=== PATIENT | female | born 1970 | race Caucasian/White ===

== ENCOUNTER → 2017-06-16 12:15 | Outpatient (CLI) | payer OTHER, SELFPAY ==
[2017-06-21 07:26] LABS: HPV Reflexed? NOT INDICATED
== END ==
PROVIDERS: Visit Provider Obstetrics & Gynecology
DX: Z12.4 Encounter for screening for malignant neoplasm of cervix (principal)
CPT/HCPCS: 88175; G0145

== ENCOUNTER → 2017-07-14 12:58 | Outpatient (CLI) | payer OTHER, SELFPAY ==
--- NOTE | 2017-07-14 13:02 | HPBI_ITS ---
MAMMOGRAPHY - BILATERAL SCREENING REASON FOR EXAM: Female, 47 years old. Routine annual screening examination. PERTINENT HISTORY: Non-contributory. TECHNIQUE: Digital bilateral breast steven (3D mammographic acquisition) in the CC and MLO projections. 2-D mediolateral oblique (MLO) and craniocaudad (CC) views of both breasts were obtained. CAD: Full Field Digital Mammography with Computer Added Detection was performed. COMPARISON: Comparison is made with prior study dated January 01, 2016 and September 17, 2014. FINDINGS: Breast Composition: The breasts are heterogeneously dense, which may obscure small masses. There are no dominant masses or suspicious calcifications. No other significant abnormalities are identified. There has been no significant change since the prior study. HPBI/SCREENING MAMM (CAD), BILAT IMPRESSION: Stable bilateral screening mammogram. Yearly follow-up mammogram recommended. (A) ASSESSMENT CATEGORY: BIRADS Category 1: Negative. A letter regarding these results will be sent to the patient by the facility within 30 days. Approximately 10% of breast cancers are not detected by mammography. A normal mammogram should not delay biopsy of a clinically suspicious abnormality. [id number] Electronically Signed: Sekou Webb MD at 15:25 EST Tel [phone], Service support ,
== END ==
LOC: BI 13:00
PROVIDERS: Family Provider Family Medicine; PCP Family Medicine; Visit Provider Obstetrics & Gynecology
DX: Z12.31 Encounter for screening mammogram for malignant neoplasm of breast (principal)
CPT/HCPCS: 77063; 77067

== ENCOUNTER → 2018-09-21 | Outpatient (CLI) | payer OTHER, SELFPAY ==
--- NOTE | 2018-09-20 16:46 | BI_ITS ---
MAMMOGRAPHY - BILATERAL SCREENING REASON FOR EXAM: Female, 48 years old. Routine annual screening examination. PERTINENT HISTORY: Non-contributory. TECHNIQUE: Digital bilateral breast steven (3D mammographic acquisition) in the CC and MLO projections. 2-D mediolateral oblique (MLO) and craniocaudad (CC) views of both breasts were obtained. CAD: Full Field Digital Mammography with Computer Added Detection was performed. COMPARISON: Comparison is made with prior study dated July 14, 2017 and January 01, 2016. FINDINGS: Breast Composition: The breasts are heterogeneously dense, which may obscure small masses. I suspected 2.5 cm x 2.8 cm well-defined nodule in the deep upper lateral aspect of the left breast. Correlation with ultrasound is recommended. No other significant abnormalities are identified. BI/SCREENING MAMM (CAD), BILAT IMPRESSION: Findings suggestive of a 2.5 cm x 2.8 cm well-defined nodule in the deep upper lateral aspect of the left breast as described. Correlation with ultrasound is recommended. ASSESSMENT CATEGORY: BIRADS Category 0: Incomplete. Need additional imaging evaluation. A letter regarding these results will be sent to the patient by the facility within 30 days. Approximately 10% of breast cancers are not detected by mammography. A normal mammogram should not delay biopsy of a clinically suspicious abnormality. [id number] Electronically Signed: Sekou Webb, at 8:59 EDT , Service support ,
== END | disposition home or self-care (01) ==
PROVIDERS: Family Provider Family Medicine; PCP Family Medicine; Referring Provider Obstetrics & Gynecology; Visit Provider Obstetrics & Gynecology
DX: Z12.31 Encounter for screening mammogram for malignant neoplasm of breast (principal)
CPT/HCPCS: 77063; 77067

== ENCOUNTER → 2018-09-26 | Outpatient (CLI) | payer OTHER, SELFPAY ==
--- NOTE | 2018-09-26 12:33 | US_ITS ---
STUDY: ULTRASOUND BREAST - LEFT REASON FOR EXAM: Female, 48 years old. Abnormal screening mammogram. TECHNIQUE: Axial and longitudinal images of the LEFT breast were performed with a high resolution ultrasound transducer. COMPARISON: Comparison is made with prior mammogram dated September 20, 2018. FINDINGS: LEFT Breast: A cluster of cysts is seen in the upper outer quadrant of the breast. The largest cyst measures 1.1 cm x 0.9 cm x 0.7 cm. US/Breast Limited Unilateral IMPRESSION: The mammographic abnormality corresponds to a cluster of cysts in the upper outer quadrant of the breast. The larger cyst measures 1.9 cm x 0.9 cm x 0.7 cm. ASSESSMENT CATEGORY: BIRADS Category 2: Benign. A letter regarding these results will be sent to the patient by the facility within 30 days. Electronically Signed: Sekou Webb, at 14:20 EDT , Service support ,
== END | disposition home or self-care (01) ==
LOC: OPUS 12:28
PROVIDERS: Family Provider Family Medicine; PCP Family Medicine; Referring Provider Obstetrics & Gynecology; Visit Provider Obstetrics & Gynecology
DX: N63.21 Unspecified lump in the left breast, upper outer quadrant (principal)
CPT/HCPCS: 76642

== ENCOUNTER → 2019-09-27 13:34 | Outpatient (CLI) | payer OTHER, SELFPAY ==
[2019-10-02 16:50] LABS: HPV Reflexed? NOT INDICATED
== END ==
PROVIDERS: PCP Family Medicine; Visit Provider Obstetrics & Gynecology
DX: Z12.4 Encounter for screening for malignant neoplasm of cervix (principal)
CPT/HCPCS: 88175; G0145

== ENCOUNTER → 2019-10-09 | Outpatient (CLI) | payer OTHER, SELFPAY ==
--- NOTE | 2019-10-09 12:42 | BI_ITS ---
MAMMOGRAPHY - BILATERAL SCREENING REASON FOR EXAM: Female, 49 years old. Routine annual screening examination. PERTINENT HISTORY: Non-contributory. TECHNIQUE: Digital bilateral breast jeannie (3D mammographic acquisition) in the CC and MLO projections. 2-D mediolateral oblique (MLO) and craniocaudad (CC) views of both breasts were obtained. CAD: Full Field Digital Mammography with Computer Added Detection was performed. COMPARISON: Comparison is made with prior study dated September 20, 2018 and July 14, 2017. FINDINGS: Breast Composition: The breasts are extremely dense, which lowers the sensitivity of mammography. There are no dominant masses or suspicious calcifications. The previously seen nodular density in the deep upper lateral aspect of the left breast has decreased in size. It presently measures 1.8 cm x 2 cm. This was demonstrated to be a cyst on prior ultrasound. No other significant abnormalities are identified. BI/SCREEN MAMM (CAD) W/JEANNIE BILAT IMPRESSION: Stable bilateral screening mammogram. Yearly follow-up mammogram recommended. (A) ASSESSMENT CATEGORY: BIRADS Category 2: Benign. A letter regarding these results will be sent to the patient by the facility within 30 days. Approximately 10% of breast cancers are not detected by mammography. A normal mammogram should not delay biopsy of a clinically suspicious abnormality. [id number] Electronically Signed: Sekou Webb, at 14:47 EDT , Service support ,
== END | disposition home or self-care (01) ==
PROVIDERS: PCP Family Medicine; Referring Provider Obstetrics & Gynecology; Visit Provider Obstetrics & Gynecology
DX: Z12.31 Encounter for screening mammogram for malignant neoplasm of breast (principal)
CPT/HCPCS: 77063; 77067

== ENCOUNTER → 2021-04-28 15:41 | Outpatient (CLI) | payer OTHER, SELFPAY ==
[2021-04-28 16:06] LABS: Absolute Lymphocyte Count 1.75 X10^3/uL (0.83-4.51); Basophil# 0.05 X10^3/uL; Basophil% 0.9 % (0-1); Eosinophils% 1.8 % (0-5); Hematocrit 29.3 % (37-47); Hemoglobin 8.1 g/dL (12.0-15.0); Lymphocyte # 1.75 X10^3/ul (0.83-4.51); Mean Corp Hgb Conc 27.6 g/dL (32-36); Mean Corpuscular Hgb 17.2 pg (27.0-32.0); Mean Corpuscular Volume 62.3 fL (81-99); Mean Platelet Vol. 8.8 fl (6.2-12.0); Monocyte# 0.74 X10^3/uL; Monocyte% 13.1 % (0-10); NRBC Flagged by Analyzer 0 % (0-5); Neutrophil # 2.98 X10^3/uL (2.7-7.7); Neutrophil % 52.8 % (47-70); Platelet Count 286 K/mm3 (150-450); RBC Distribution Width CV 19.6 % (11.6-14.6); RBC Distribution Width SD 42.4 fl (35.1-43.9); White Blood Count 5.6 K/mm3 (4.4-11.0)
[2021-04-28 16:12] LABS: Erythrocyte Sedimentation Rate 14 mm/hr (0-30)
[2021-04-28 16:37] LABS: ALB/GLOB Ratio 0.8 RATIO (0.9-2.4); AST(SGOT) 32 U/L (15-37); Alanine Aminotransfer ALT/SGPT 54 U/L (13-56); Albumin, Serum 3.5 g/dL (3.2-5.0); Alkaline Phosphatase 63 U/L (45-117); Anion Gap 7 (5-15); BUN 13 mg/dL (7-18); BUN/Creat Ratio 18.1 RATIO (10-20); CRP < 2.90 mg/L (0.0-3.0); Calcium,Total 8.7 mg/dL (8.5-10.1); Chloride 105 mmol/L (98-107); Creatinine, Serum 0.72 mg/dL (0.55-1.02); EST Glomerular Filtration Rate 91 mL/min (>60); Est Glom Filt Rate - Afr Amer 110 mL/min (>60); Globulin 4.5 g/dL (2.2-4.2); Glucose 85 mg/dL (74-106); LDH 162 U/L (84-246); Sodium Level 140 mmol/L (136-145)
[2021-04-29 11:17] LABS: Platelet Count 238 K/mm3 (150-450); RET-HE 18.1 pg (30-35); Reticulocyte Count 1.37 % (0.5-1.5)
[2021-04-29 11:19] LABS: Immature Platelet Fraction 6.2 % (1.0-7.9)
[2021-04-29 12:26] LABS: Ferritin 2 ng/mL (8-252); Iron 15 ug/dL (50-170); Iron Binding Capacity,Total 493 ug/dL (250-450)
[2021-04-30 13:07] LABS: Anti-Centromere B Ab <0.2 AI (0.0-0.9); Anti-Chromatin <0.2 AI (0.0-0.9); Anti-Jo <0.2 AI (0.0-0.9); Anti-Scleroderma-70 AB <0.2 AI (0.0-0.9); RNP Ab 0.2 AI (0.0-0.9); SJOGREN'S Anti-SS-A test < 0.2 AI (0.0-0.9); SJOGREN'S Anti-SS-B test < 0.2 AI (0.0-0.9); Smith Ab <0.2 AI (0.0-0.9)
[2021-04-30 20:35] LABS: Anti-dsDNA Ab <1 IU/mL (0-9)
[2021-05-05 13:07] LABS: Cytoplasmic Ab (C-ANCA) <1:20 titer (Neg:<1:20); Endomysial Antibody IgA Negative (Negative); Immunoglobulin A 458 mg/dL (87-352); Immunoglobulin E 122 IU/mL (6-495); Immunoglobulin G 1605 mg/dL (586-1602)
[2021-05-06 11:49] LABS: Immunoglobulin M 139 mg/dL (26-217); Perinuclear Ab (P-ANCA) <1:20 titer (Neg:<1:20); t-Transglutaminase IgA <2 U/mL (0-3)
== END ==
PROVIDERS: PCP Family Medicine; Referring Provider Internal Medicine Gastroenterology; Visit Provider Internal Medicine Gastroenterology
DX: R19.7 Diarrhea, unspecified (principal)
CPT/HCPCS: 36415; 80053; 82728; 82784; 82785; 83516; 83540; 83550; 83615; 85025; 85045; 85652; 86140; 86225; 86235; 86255; 86256

== ENCOUNTER → 2021-04-29 09:28 | Outpatient (CLI) | payer OTHER, SELFPAY ==
[2021-05-02 13:06] LABS: H. PYLORI STOOL AG Negative (Negative)
[2021-05-02 19:53] LABS: Giardia Lamblia, Stool EIA Negative (Negative)
[2021-05-05 09:46] LABS: Calprotectin, Stool 22 ug/g (0-120)
== END ==
PROVIDERS: PCP Family Medicine; Referring Provider Internal Medicine Gastroenterology; Visit Provider Internal Medicine Gastroenterology
DX: R19.7 Diarrhea, unspecified (principal)
CPT/HCPCS: 82274; 83630; 83993; 87177; 87209; 87329; 87506

== ENCOUNTER → 2021-05-06 09:08 | Outpatient (CLI) | payer OTHER, SELFPAY ==
[2021-05-06 09:30] LABS: Absolute Lymphocyte Count 1.15 X10^3/uL (0.83-4.51); Absolute Neutrophil Count 3.9 X10^3/uL (2.0-7.7); Basophil# 0.06 X10^3/uL; Eosinophil# 0.12 X10^3/uL; Eosinophils% 2.1 % (0-5); Hematocrit 28.7 % (37-47); Hemoglobin 8.1 g/dL (12.0-15.0); Lymphocyte # 1.15 X10^3/ul (0.83-4.51); Lymphocyte % 19.8 % (19-41); Mean Corp Hgb Conc 28.2 g/dL (32-36); Mean Corpuscular Hgb 17.9 pg (27.0-32.0); Mean Corpuscular Volume 63.4 fL (81-99); Mean Platelet Vol. 8.8 fl (6.2-12.0); Monocyte# 0.59 X10^3/uL; Monocyte% 10.1 % (0-10); NRBC Flagged by Analyzer 0 % (0-5); Neutrophil # 3.88 X10^3/uL (2.7-7.7); Neutrophil % 66.7 % (47-70); POSITIVE MORPHOLOGY YES; Platelet Count 274 K/mm3 (150-450); RBC Distribution Width CV 21.3 % (11.6-14.6); RBC Distribution Width SD 43.2 fl (35.1-43.9); Red Blood Count 4.53 M/mm3 (4.2-5.4); White Blood Count 5.8 K/mm3 (4.4-11.0)
[2021-05-06 09:32] LABS: Differential Indicated SCAN CRITERIA MET
[2021-05-06 09:45] LABS: ALB/GLOB Ratio 0.7 RATIO (0.9-2.4); AST(SGOT) 31 U/L (15-37); Alanine Aminotransfer ALT/SGPT 50 U/L (13-56); Albumin, Serum 3.2 g/dL (3.2-5.0); Alkaline Phosphatase 57 U/L (45-117); Anion Gap 5 (5-15); BUN 16 mg/dL (7-18); BUN/Creat Ratio 20.5 RATIO (10-20); Calcium,Total 8.5 mg/dL (8.5-10.1); Chloride 109 mmol/L (98-107); Creatinine, Serum 0.78 mg/dL (0.55-1.02); EST Glomerular Filtration Rate 83 mL/min (>60); Est Glom Filt Rate - Afr Amer 100 mL/min (>60); Globulin 4.4 g/dL (2.2-4.2); Glucose 102 mg/dL (74-106); Potassium 3.7 mmol/L (3.5-5.1); Protein, Total 7.6 g/dL (6.4-8.2); Sodium Level 139 mmol/L (136-145)
[2021-05-06 09:47] LABS: Ferritin 3 ng/mL (8-252); Iron 179 ug/dL (50-170); Iron Binding Capacity,Total 471 ug/dL (250-450)
[2021-05-07 12:31] LABS: Erythropoietin 115.7 mIU/mL (2.6-18.5)
== END ==
PROVIDERS: PCP Family Medicine; Referring Provider Internal Medicine Gastroenterology; Visit Provider Internal Medicine Gastroenterology
DX: D64.9 Anemia, unspecified (principal)
CPT/HCPCS: 36415; 80053; 82668; 82728; 83540; 83550; 85025

== ENCOUNTER 2021-05-26 10:38 | Day surgery (SDC) | payer OTHER, SELFPAY ==
[2021-05-26 11:18] VITALS: BP 124/84; PULSE 84; RESP 16; TEMP 36.8; O2SAT 100; BMI 23.5
--- NOTE | 2021-05-26 11:38 | PCM.HP.BLA ---
History and Physical Date of Admission: 05/26/21 51 F who presents to the office today for For the last year she has been having problems which started with reflux type symptoms in her throat. She started omeprazole 20mg QD. This worked for a short period of time. Then she began having diarrhea following PO intake, no trigger identified. EGD performed at [facility] with reported normal findings. Colonoscopy then performed sometime this year at [facility] and reports normal results. Gallbladder evaluated in the fall and was then referred for gallbladder surgery with Dr. Paz who suggested other workup as there was no stomach pain. PCP then seen and he encourage gallbladder removal and this was done as it was operating at a low percentage. Reports unintentional weight loss of 15 pounds in a year, thinks this may be related to fear of eating. Fiber and colestyramine utilized with positive results though she still has issues with diarrhea. Diarrhea occurs following PO intake without pattern. Now reporting that dairy, tomato causes issues with diarrhea and stomach cramping. [employer] testing done with results mild reactivity with osman peppers, black tea, chicken, coffee, cows milk, eggplant, garlic, mozzarella, yogurt. ROS Gastro GI: Positive for abdominal pain, change in bowel habits and diarrhea Musc Musculoskeletal: Positive for back pain and stiffness Exam Const General: cooperative and comfortable Nutritional Appearance: average body habitus and well nourished HENHI Head: normal to inspection Ears: hearing grossly normal bilaterally Nose: external nose normal Face and sinus: normal facial exam Mouth: oral mucosae normal Throat: posterior oropharynx normal Eyes General: appearance normal, both eyes and all related structures Neck Neck: normal visual inspection Chest Chest palpation & inspection: normal inspection of the chest and normal palpation of entire chest wall Resp Effort & Inspection: normal respiratory effort Auscultation: Bilateral: Clear to Auscultation Cardio Palpation: normal PMI Rate: regular rate Rhythm: regular rhythm GI Inspection: normal to inspection Auscultation: normal bowel sounds Percussion: normal to percussion Palpation: no hepatosplenomegaly Skin General: no rashes or lesions noted Neuro General: patient alert Extrem General: normal to inspection Psych Affect: normal affect Assessment and Plan Assessment and Plan (1) Diarrhea: Status: Acute Orders: Orders: CRP Today Erythrocyte Sed Rate Today Comprehensive Metabolic Profil Today LDH Today CBC W/Diff, Automated Today ANCA Today Celiac Disease Profile Today Immunoglobulin E Today Immunoglobulin G Today Immunoglobulin M Today Miscellaneous Lab Procedure Today Calprotectin, Stool Today ENTERIC PATHOGEN PANEL STOOL Today Stool Occult Blood iFOB Today Stool Lactoferrin/WBC Today Giardia Lamblia, Stool EIA Today H. PYLORI STOOL AG Today Ova and Parasites [id number] Today Plan - Dr. Miller Friend, DO: The differential diagnosis for diarrhea include bile acid diarrhea, IBS with diarrhea, celiac disease., Microscopic colitis, lymphocytic colitis, inflammatory bowel disease. We will get stool test and biochemical analysis. All symptoms diagnosis for continue diarrhea would be GI bleed has blood into cathartic in the GI tract. (2) Anemia: Status: Acute Plan - Dr. Miller Friend, DO: I sent patient down for stat hemoglobin and her hemoglobin came back very low at 8 with MCV is 62.5. I will start her on iron therapy and recheck her CBC with iron studies in approximately 4 days. If her hemoglobin is continue to drop then she will need to get blood transfusion. I told her she will need to have an upper or lower endoscopy along with hemolysis labs to see if she is losing blood or she has having a consumptive coagulopathy. Plan Details Other Medications: New: colestipol 2 grams (2 x 1 gram) PO ONCE 60 tabs 0RF I have re-examined the patient. There are no clinical changes since date of exam.
[2021-05-26 11:46] LABS: Internal QC Validated? YES +Cl - CLEAR BKGD
[2021-05-26 11:50] LABS: Pregnancy, Urine Negative Negative
[2021-05-26] MEDS: Lactated Ringers 1,000 ML 15 ML IV (12:15)
--- NOTE | 2021-05-26 12:44 | OP.EGD_ITS ---
Patient Name: Soraya Reilly Procedure Date: 05/26/2021 11:39 AM Date of : 1970 Age: 51 Procedure: Upper GI endoscopy Indications: Iron deficiency anemia Providers: Paul Trevino DO Medicines: See the Anesthesia note for documentation of the administered medications Patient Profile: This is a 51 year old female. Refer to note in patient chart for documentation of history and physical. Patient has symptoms. Complications: No immediate complications. Procedure: Pre-Anesthesia Assessment: - Prior to the procedure, a History and Physical was performed, and patient medications and allergies were reviewed. The patient is competent. The risks and benefits of the procedure and the sedation options and risks were discussed with the patient. All questions were answered and informed consent was obtained. Patient identification and proposed procedure were verified in the pre-procedure area. Mental Status Examination: alert and oriented. Airway Examination: normal oropharyngeal airway and neck mobility. Respiratory Examination: clear to auscultation. CV Examination: normal. Prophylactic Antibiotics: The patient does not require prophylactic antibiotics. Prior Anticoagulants: The patient has taken no previous anticoagulant or antiplatelet agents. After reviewing the risks and benefits, the patient was deemed in satisfactory condition to undergo the procedure. The anesthesia plan was to use moderate sedation / analgesia (conscious sedation). Immediately prior to administration of medications, the patient was re-assessed for adequacy to receive sedatives. The heart rate, respiratory rate, oxygen saturations, blood pressure, adequacy of pulmonary ventilation, and response to care were monitored throughout the procedure. The physical status of the patient was re-assessed after the procedure. After obtaining informed consent, the endoscope was passed under direct vision. Throughout the procedure, the patient's blood pressure, pulse, and oxygen saturations were monitored continuously. The pediatric colonoscope was introduced through the mouth, and advanced to the fourth part of duodenum. The upper GI endoscopy was accomplished without difficulty. The patient tolerated the procedure well. Moderate Sedation: Moderate (conscious) sedation was administered by the endoscopy nurse and supervised by the endoscopist. The following parameters were monitored: oxygen saturation, heart rate, blood pressure, and response to care. Total physician intraservice time was 15 minutes. Scope In: 12:03:43 PM Scope Out: 12:16:16 PM Total Procedure Duration Time 0 hours 12 minutes 33 seconds Findings: The examined esophagus was normal. Red blood was found at the pylorus. Three 5 mm angiodysplastic lesions with stigmata of recent bleeding were found in the second portion of the duodenum. Coagulation for hemostasis using argon beam at 0.3 liters/minute and 20 esparza was successful. Estimated blood loss was minimal. Impression: - Normal esophagus. - Red blood in the pylorus. 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 Treated with argon beam coagulation. - No specimens collected. Recommendation: - Discharge patient to home. - Resume previous diet. - Continue present medications. - Return to my office. Procedure Code(s): --- Professional --- 23840, Esophagogastroduodenoscopy, flexible, transoral; with control of bleeding, any method 92570, 59, Moderate sedation services provided by the same physician or other qualified health pet care technician performing the diagnostic or therapeutic service that the sedation supports, requiring the presence of an independent trained observer to assist in the monitoring of the patient's level of consciousness and physiological status; initial 15 minutes of intraservice time, patient age 5 years or older CPT copyright 2017 [employer]. All rights reserved. The codes documented in this report are preliminary and upon molder feeder review may be revised to meet current compliance requirements. Paul Trevino DO 05/26/2021 12:44:14 PM This report has been signed electronically. Number of Addenda: 1 Note Initiated On: 05/26/2021 11:39 AM Addendum Number: 1 Addendum Date: 01/13/2022 6:18:46 AM MAC was used instead of moderate sedation for the patient. Paul Trevino DO 01/13/2022 6:18:49 AM This report has been signed electronically.
--- NOTE | 2021-05-26 12:45 | OP.CCLET_ITS ---
01/13/2022 Albert Jeffries MD Re : Upper GI endoscopy procedure for Soraya Reilly Dear Dr. Jeffries This procedure was performed on Wednesday, May 26, 2021. My impressions and recommendations are as follows: Impressions : - Normal esophagus. - Red blood in the pylorus. 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 Treated with argon beam coagulation. - No specimens collected. Recommendations : - Discharge patient to home. - Resume previous diet. - Continue present medications. - Return to my office. My findings are described in the full procedure note, which is enclosed. If I can be of further assistance, please feel free to contact me at . Sincerely, Paul Trevino, 05/26/2021 12:44:14 PM This report has been signed electronically.
[2021-05-26 12:46] VITALS: BP 117/84; BP 124/84; BP 126/89; PULSE 95; PULSE 97; RESP 18; RESP 20; TEMP 36.4; O2SAT 95
[2021-05-26 12:55] VITALS: BP 122/90; BP 124/84; PULSE 82; RESP 20; O2SAT 100
[2021-05-26 12:57] VITALS: BP 123/85; BP 124/84; PULSE 81; RESP 18; TEMP 36; O2SAT 95
--- NOTE | 2021-05-26 12:58 | OP.COLON_ITS ---
Patient Name: Soraya Reilly Procedure Date: 05/26/2021 12:16 PM Date of : 1970 Age: 51 Procedure: Colonoscopy Indications: Iron deficiency anemia Providers: Palu Trevino DO Medicines: See the Anesthesia note for documentation of the administered medications Patient Profile: This is a 51 year old female. Refer to note in patient chart for documentation of history and physical. Patient has symptoms. Last Colonoscopy: 1 year ago. Complications: No immediate complications. Procedure: Pre-Anesthesia Assessment: - Prior to the procedure, a History and Physical was performed, and patient medications and allergies were reviewed. The patient is competent. The risks and benefits of the procedure and the sedation options and risks were discussed with the patient. All questions were answered and informed consent was obtained. Patient identification and proposed procedure were verified in the pre-procedure area. Mental Status Examination: alert and oriented. Airway Examination: normal oropharyngeal airway and neck mobility. Respiratory Examination: clear to auscultation. CV Examination: normal. Prophylactic Antibiotics: The patient does not require prophylactic antibiotics. Prior Anticoagulants: The patient has taken no previous anticoagulant or antiplatelet agents. After reviewing the risks and benefits, the patient was deemed in satisfactory condition to undergo the procedure. The anesthesia plan was to use moderate sedation / analgesia (conscious sedation). Immediately prior to administration of medications, the patient was re-assessed for adequacy to receive sedatives. The heart rate, respiratory rate, oxygen saturations, blood pressure, adequacy of pulmonary ventilation, and response to care were monitored throughout the procedure. The physical status of the patient was re-assessed after the procedure. After I obtained informed consent, the scope was passed under direct vision. Throughout the procedure, the patient's blood pressure, pulse, and oxygen saturations were monitored continuously. The pediatric colonoscope was introduced through the anus and advanced to 10 cm into the ileum. The colonoscopy was performed without difficulty. The patient tolerated the procedure well. The quality of the bowel preparation was good. Moderate Sedation: Moderate (conscious) sedation was administered by the endoscopy nurse and supervised by the endoscopist. The following parameters were monitored: oxygen saturation, heart rate, blood pressure, and response to care. Total physician intraservice time was 2 minutes. Scope In: 12:21:47 PM Scope Withdrawal Time 0 hours 8 minutes 16 seconds Scope Out: 12:39:09 PM Total Procedure Duration Time 0 hours 17 minutes 22 seconds Findings: The perianal and digital rectal examinations were normal. The exam was otherwise without abnormality on direct and retroflexion views. Impression: - The examination was otherwise normal on direct and retroflexion views. - No specimens collected. Recommendation: - Discharge patient to home. - Resume previous diet. - Refer to an interventional radiologist in 1 day. - Repeat colonoscopy in 10 years for screening purposes. - Continue present medications. Procedure Code(s): --- Professional --- 82091, Colonoscopy, flexible; diagnostic, including collection of specimen(s) by brushing or washing, when performed (separate procedure) CPT copyright 2017 [employer]. All rights reserved. The codes documented in this report are preliminary and upon furnace feeder review may be revised to meet current compliance requirements. Paul Trevino DO 05/26/2021 12:58:10 PM This report has been signed electronically. Number of Addenda: 1 Note Initiated On: 05/26/2021 12:16 PM Addendum Number: 1 Addendum Date: 01/13/2022 6:18:58 AM MAC was used instead of moderate sedation for the patient. Paul Trevino DO 01/13/2022 6:19:05 AM This report has been signed electronically.
--- NOTE | 2021-05-26 12:59 | OP.CCLET_ITS ---
01/13/2022 Albert Jeffries MD Re : Colonoscopy procedure for Soraya Reilly Dear Dr. Jeffries This procedure was performed on Wednesday, May 26, 2021. My impressions and recommendations are as follows: Impressions : - The examination was otherwise normal on direct and retroflexion views. - No specimens collected. Recommendations : - Discharge patient to home. - Resume previous diet. - Refer to an interventional radiologist in 1 day. - Repeat colonoscopy in 10 years for screening purposes. - Continue present medications. My findings are described in the full procedure note, which is enclosed. If I can be of further assistance, please feel free to contact me at . Sincerely, Paul Friend, 05/26/2021 12:58:10 PM This report has been signed electronically.
[2021-05-26 13:20] VITALS: BP 124/84
== END 2021-05-26 23:59 | disposition home or self-care (01) ==
LOC: EN 10:39 → AC 10:41
PROVIDERS: Anesthesiology; PCP Family Medicine; Referring Provider Family Medicine; Visit Provider Internal Medicine Gastroenterology
PROC: 0DJD8ZZ Inspection of Lower Intestinal Tract, Via Natural or Artificial Opening Endoscopic (ICD-10-PCS; CPT 45378; principal; 2021-05-26 11:40)
DX: K31.811 Angiodysplasia of stomach and duodenum with bleeding (principal); D50.9 Iron deficiency anemia, unspecified; Z90.49 Acquired absence of other specified parts of digestive tract; R19.7 Diarrhea, unspecified
CPT/HCPCS: 43255; 45378; 81025; J7120; J2405

== ENCOUNTER 2021-06-08 10:14 | Outpatient (CLI) | payer OTHER, SELFPAY ==
[2021-06-08 11:12] LABS: Absolute Lymphocyte Count 1.19 X10^3/uL (0.83-4.51); Absolute Neutrophil Count 3.2 X10^3/uL (2.0-7.7); Basophil# 0.04 X10^3/uL; Basophil% 0.8 % (0-1); Eosinophil# 0.08 X10^3/uL; Eosinophils% 1.6 % (0-5); Hematocrit 36.2 % (37-47); Hemoglobin 10.4 g/dL (12.0-15.0); Lymphocyte # 1.19 X10^3/ul (0.83-4.51); Lymphocyte % 23.4 % (19-41); Mean Corp Hgb Conc 28.7 g/dL (32-36); Mean Corpuscular Hgb 20.2 pg (27.0-32.0); Mean Corpuscular Volume 70.2 fL (81-99); Mean Platelet Vol. 9.3 fl (6.2-12.0); Monocyte# 0.56 X10^3/uL; NRBC Flagged by Analyzer 0 % (0-5); Neutrophil % 62.8 % (47-70); POSITIVE MORPHOLOGY YES; Platelet Count 279 K/mm3 (150-450); RBC Distribution Width SD 67.5 fl (35.1-43.9); Red Blood Count 5.16 M/mm3 (4.2-5.4); White Blood Count 5.1 K/mm3 (4.4-11.0)
[2021-06-08 11:16] LABS: Differential Indicated SCAN CRITERIA MET
[2021-06-08 11:42] LABS: Anisocytosis 2+; Hypochromasia 1+; Microcytosis 2+
[2021-06-08 12:04] LABS: Bilirubin, Direct 0.12 mg/dL (0.00-0.30); LDH 147 U/L (84-246); Thyroid Stim Hormone (TSH) 1.52 uIU/mL (0.358-3.74)
== END 2021-06-08 23:59 | disposition short-term general hospital (02) ==
PROVIDERS: PCP Family Medicine; Referring Provider Nurse Practitioner Adult Health; Visit Provider Nurse Practitioner Adult Health
DX: D64.9 Anemia, unspecified (principal); R19.7 Diarrhea, unspecified
CPT/HCPCS: 36415; 82247; 82248; 83615; 84443; 85025; 86880

== ENCOUNTER 2021-07-23 09:01 | Outpatient (CLI) | payer OTHER, SELFPAY | END 2021-07-23 23:59 | disposition home or self-care (01) | LOC: LAB 09:02 | PROVIDERS: PCP Family Medicine; Visit Provider Nurse Practitioner Adult Health | DX: K50.00 Crohn's disease of small intestine without complications (principal); K63.3 Ulcer of intestine | CPT/HCPCS: 36415 ==

== ENCOUNTER 2021-08-06 08:48 | Outpatient (CLI) | payer OTHER, SELFPAY ==
[2021-08-06 09:23] LABS: Absolute Lymphocyte Count 1.38 X10^3/uL (0.83-4.51); Absolute Neutrophil Count 3.2 X10^3/uL (2.0-7.7); Basophil# 0.03 X10^3/uL; Basophil% 0.6 % (0-1); Eosinophil# 0.11 X10^3/uL; Eosinophils% 2.1 % (0-5); Hematocrit 40.3 % (37-47); Hemoglobin 12.8 g/dL (12.0-15.0); Lymphocyte # 1.38 X10^3/ul (0.83-4.51); Lymphocyte % 26.3 % (19-41); Mean Corp Hgb Conc 31.8 g/dL (32-36); Mean Corpuscular Volume 78.9 fL (81-99); Mean Platelet Vol. 9.6 fl (6.2-12.0); Monocyte# 0.55 X10^3/uL; Monocyte% 10.5 % (0-10); NRBC Flagged by Analyzer 0 % (0-5); Neutrophil # 3.17 X10^3/uL (2.7-7.7); Neutrophil % 60.3 % (47-70); Platelet Count 178 K/mm3 (150-450); RBC Distribution Width CV 19.8 % (11.6-14.6); RBC Distribution Width SD 57.1 fl (35.1-43.9); Red Blood Count 5.11 M/mm3 (4.2-5.4); White Blood Count 5.3 K/mm3 (4.4-11.0)
[2021-08-06 09:58] LABS: Ferritin 7 ng/mL (8-252); Iron 40 ug/dL (50-170); Iron Binding Capacity,Total 393 ug/dL (250-450); PERCENT IRON SATURATION 10.2 % (15.0-55.0)
== END 2021-08-06 23:59 | disposition home or self-care (01) ==
LOC: LAB 08:49
PROVIDERS: PCP Family Medicine; Referring Provider Nurse Practitioner Adult Health; Visit Provider Nurse Practitioner Adult Health
DX: D50.9 Iron deficiency anemia, unspecified (principal)
CPT/HCPCS: 36415; 82728; 83540; 83550; 85025

== ENCOUNTER → 2021-09-30 | Outpatient (CLI) | payer OTHER, SELFPAY ==
--- NOTE | 2021-09-30 13:45 | EMB_PTH ---
PATIENT: REINA BOSS LOC: [facility] U#:[id number] AGE/SX: 51/F ROOM: RE09/30/[address]: Dr. Lefty Castano MD : 1970 BED: DIS: 09/30/2021 SPEC #: [id number] RECD: 09/30/21 16:40 STATUS: AUDI RERaul #: [id number] KALLIE: 09/30/21 13:[address]: Lefty Castano DEPT: SURGICAL PATHOLOGY RECD BY: Monica Romero ENTERED: 10/01/21 09:10 SP TYPE: ENDOM BX/C JIMY DR: Dr. Albert Jeffries MD Tissues: Endometrium, NOS Procedures: Surgery Specimen Level IV HEADER OPERATION: Endometrial biopsy PRE-OP DIAGNOSIS: N93.9, N92.6 TISSUE SUBMITTED: Endometrial biopsy MICROSCOPIC DIAGNOSIS Endometrium, biopsy: Disordered proliferative endometrium. Focal simple hyperplasia without atypia. AM:becky 10/05/2021 MICROSCOPIC DESCRIPTION Slides are reviewed. GROSS DESCRIPTION Received in fixative is one container labeled with the patient's name and designated endometrial biopsy. The specimen consists of multiple fragments of hemorrhagic soft tissue that in aggregate measure 2.5 x 2 x 0.2 cm. The specimen is totally submitted in one cassette. / SJ:rg 10/01/2021 TC:5 CPT: 62460
[2021-10-06 08:28] LABS: HPV Reflexed? NOT INDICATED
== END | disposition home or self-care (01) ==
LOC: LABSPEC 15:53
PROVIDERS: PCP Family Medicine; Visit Provider Obstetrics & Gynecology
DX: N93.9 Abnormal uterine and vaginal bleeding, unspecified (principal); N92.6 Irregular menstruation, unspecified; N85.01 Benign endometrial hyperplasia; Z12.4 Encounter for screening for malignant neoplasm of cervix
CPT/HCPCS: 88175; 88305; G0145

== ENCOUNTER 2021-11-11 10:42 | Day surgery (SDC) | payer OTHER, SELFPAY ==
[2021-11-11] VITALS (7 sets, daily range): BP systolic 114–133; BP diastolic 76–97; PULSE 66–85; RESP 16–18; TEMP 36.3–36.8; O2SAT 95–100; BMI 23.8
--- NOTE | 2021-11-11 10:52 | PCM.HP.BLA ---
History and Physical Date of Admission: 11/11/21 51 F who presents to the office today for discussion of capsule endoscopy result.? This was her second capsule endoscopy.? We did a repeat capsule endoscopy because of ongoing low iron stores.? No active bleeding was found.? She had 1 small gastric ulcer. Pantoprazole bothered her stomach so she stopped it approximately 6 weeks ago, it seemed to make her diarrhea worse.? She is frustrated that she cannot gain weight.? She continues to have significant stress.? Her aunt yesterday.? Soraya will probably have custody of the 10-year-old girl who lived with the aunt. The first capsule endoscopy was done because of duodenal bleeding found on EGD; the EGD and colonoscopy were performed because of anemia and diarrhea.? The first capsule endoscopy revealed gastric ulcers, circular ulcerations in the terminal ileum, and terminal ileitis.? Her work-up for inflammatory bowel disease was negative.? We treated her gastric ulcers with sucralfate and pantoprazole.? We continued her on colestipol for the diarrhea, and iron for anemia.? Her anemia improved with normal hemoglobin of 12.8 in August.? She is taking colestipol before meals to help prevent diarrhea.? She finds hyoscyamine is more effective than dicyclomine at managing the abdominal cramps, although it does make her sleepy. 08/06/21 hgb 12.8 (compares to 10.4 on 06/08/21 and 8.1 on 05/06/21), iron low at 40, iron saturation low at 10.2, ferritin low at 7 Even with lactaid she can't tolerate milk. No NSAIDs. ROS Const Constitutional: No fatigue ENT ENT: No difficulty swallowing Gastro GI: Positive for heartburn; No abdominal pain, belching, bloating, change in bowel habits, change in stool character, coffee ground emesis, constipation, cramping, diarrhea, difficulty swallowing, feeling full early, excessive flatus, incontinent of stools, Vomiting blood/hematemesis, Blood in stool, loose stools, Black,tarry stools, nausea/dyspepsia, pain with swallowing, vomiting or other Musc Musculoskeletal: Positive for joint pain, muscle cramps and leg pain at night Skin Skin: No yellowing of the eye or itchy eyes Psych Psychiatric: Positive for anxiety and No depression Endo Endocrine: No fatigue Aller/Imm Allergy/Immunologic: No itchy eyes Brandin/Lymp Hematologic/Lymphatic: No easy bleeding or easy bruising Exam Const General: cooperative, comfortable, well developed, well groomed and anxious Nutritional Appearance: average body habitus Eyes General: appearance normal, both eyes and all related structures Resp Effort & Inspection: normal respiratory effort GI Inspection: normal to inspection Skin General: no rashes or lesions noted Quality Reporting Tobacco Screening (CMS 138) Smoking Status: Never smoker Assessment and Plan Assessment and Plan (1) Gastric ulcer: ?Status:?Acute ?Plan: 1 small gastric ulcer persists.? Treat with 1 month of sucralfate.? Schedule follow-up EGD to evaluate for resolution.? Hold off on PPI since it worsened her diarrhea.? Follow-up 2 weeks after EGD to discuss biopsy results. (2) Diarrhea: ?Status:?Acute ?Plan: Continue colestipol since that is effective. (3) Iron deficiency anemia: ?Status:?Acute ?Plan: She prefers not to do labs today.? We can recheck at follow-up visit. ? ? ? Medications: New sucralfate 1 g? PO QAC 90 tabs 0RF ? ? Discontinued iron, carbonyl (Feosol) ?? Discontinued Reason:? Pt no longer taking 45 mg? PO DAILY 30 tabs 0RF ? ? pantoprazole ?? Discontinued Reason:? Pt no longer taking 40 mg? PO QAM 30 tabs 2RF ? ? dicyclomine ?? Discontinued Reason:? Order Completed 10 mg? PO BID PRN 60 caps 0RF abdominal discomfort ? ? ondansetron ?? Discontinued Reason:? Pt no longer taking 4 mg? PO Q8H PRN 60 tabs 1RF nausea and vomiting ? ? I have re-examined the patient. There are no clinical changes since date of exam.
[2021-11-11 11:32] LABS: Internal QC Validated? YES +Cl - CLEAR BKGD; Pregnancy, Urine Negative Negative
[2021-11-11] MEDS: Lactated Ringers 1,000 ML 15 ML IV (11:39)
--- NOTE | 2021-11-11 11:45 | EGD_PTH ---
PATIENT: REINA BOSS LOC: EN U#:[id number] AGE/SX: 51/F ROOM: RE11/11/[address]: Dr. Paul Trevino DO : 1970 BED: DIS: 11/11/2021 SPEC #: [id number] RECD: 11/11/21 15:21 STATUS: AUDI REQ #: [id number] KALLIE: 11/11/21 11:[address]: Paul Trevino DEPT: SURGICAL PATHOLOGY RECD BY: Monica Romero ENTERED: 11/12/21 08:38 SP TYPE: EGD BIOPSY CASSIDY DR: Dr. Albert Jeffries MD Tissues: A - Esophagus, NOS B - Gastric mucous membrane Procedures: Special Stain Group II Surgery Specimen Level IV Alcian Blue/PAS (control) HEADER OPERATION: EGD ([facility]), biopsy PRE-OP DIAGNOSIS: Gastric ulcer, diarrhea, iron deficiency anemia TISSUE SUBMITTED: A ? Distal esophagus biopsy, B ? Gastric ulcer biopsy MICROSCOPIC DIAGNOSIS A. Distal esophagus, biopsy: Fragments of gastroesophageal mucosa with chronic inflammation. Intestinal metaplasia (goblet cell metaplasia) not identified. See comment. B. Gastric ulcer, biopsy: Mild gastritis. See microscopic description and comment. SJ:rg 11/15/2021 COMMENT A. Alcian blue/PAS stain with matched control is used in the evaluation of the specimen. B. The results of immunohistochemistry for Helicobacter pylori will be reported separately ([id number]). MICROSCOPIC DESCRIPTION Slides are reviewed. B. The specimen shows fragments of gastric mucosa with chronic inflammatory cell infiltrates in the lamina propria consisting of lymphocytes and plasma cells, consistent with mild chronic gastritis. GROSS DESCRIPTION A - Received in fixative is one container labeled with the patient's name and designated distal esophagus biopsy. The specimen consists of two irregular fragments of light isaacs soft tissue that in aggregate measure 0.8 x 0.3 x 0.1 cm. The specimen is totally submitted in one cassette. B - Received in fixative is one container labeled with the patient's name and designated gastric ulcer biopsy. The specimen consists of multiple irregular fragments of light isaacs soft tissue that in aggregate measure 0.8 x 0.4 x 0.1 cm. The specimen is totally submitted in one cassette. / GALLITO:becky 11/12/2021 TC:3 CPT: 00898 x2, 55298
--- NOTE | 2021-11-11 11:45 | IMM_PTH ---
PATIENT: REINA BOSS LOC: EN U#:[id number] AGE/SX: 51/F ROOM: RE11/11/[address]: Dr. Paul Trevino DO : 1970 BED: DIS: 11/11/2021 SPEC #: [id number] RECD: 11/12/21 13:03 STATUS: AUDI REQ #: [id number] KALLIE: 11/11/21 11:[address]: Paul Trevino DEPT: IMMUNOHISTOCHEMISTRY RECD BY: Elsa Olivas ENTERED: 11/12/21 13:04 SP TYPE: IMMUNO OTHR DR: Dr. Albert Jeffries MD Tissues: B - Stomach, NOS Procedures: H Pylori (initial) [facility]YSIC[facility]STIT[facility] [address] [address] SPECIMEN INFORMATION: Tissue Source: B ? Gastric ulcer Clinical Info: Gastric ulcer, diarrhea, iron deficiency anemia Specimen Number: [id number] CPT code: 53811 METHODOLOGY: Deparaffinized sections of prefer/formalin-fixed tissue or PAP/DQ stained slides are incubated with monoclonal/polyclonal antibodies/oligonucleotide probes. Localization is made via biotin free immunoperoxidase method. Appropriate controls are performed and reacted as expected. Results on target cell population are indicated in the following table: RESULTS: ANTIBODY / CLONE RESULT Block B H Pylori (polyclonal) negative These tests were developed and their performance characteristics determined by [facility]. They may not have been cleared or approved by the U.S. Food and Drug Administration. The FDA has determined that such clearance or approval is not necessary. The above immunohistochemical/dualISH markers are ordered and reviewed by the Pathologist. INTERPRETATION: B. Gastric ulcer, biopsy: Negative for Helicobacter pylori organisms. SJ:becky 11/16/2021
--- NOTE | 2021-11-11 12:07 | OP.EGD_ITS ---
Patient Name: Soraya Reilly Procedure Date: 11/11/2021 11:28 AM Date of : 1970 Age: 51 Procedure: Upper GI endoscopy Indications: Iron deficiency anemia Providers: Paul Trevino DO Referring MD: Paul Trevino DO Medicines: Monitored Anesthesia Care Patient Profile: This is a 51 year old female. Refer to note in patient chart for documentation of history and physical. Patient has symptoms of acute epigastric abdominal pain. Complications: No immediate complications. Procedure: Pre-Anesthesia Assessment: - Prior to the procedure, a History and Physical was performed, and patient medications and allergies were reviewed. The patient is competent. The risks and benefits of the procedure and the sedation options and risks were discussed with the patient. All questions were answered and informed consent was obtained. Patient identification and proposed procedure were verified by the physician in the pre-procedure area. Mental Status Examination: alert and oriented. Airway Examination: normal oropharyngeal airway and neck mobility. Respiratory Examination: clear to auscultation. CV Examination: normal. Prophylactic Antibiotics: The patient does not require prophylactic antibiotics. Prior Anticoagulants: The patient has taken no previous anticoagulant or antiplatelet agents. ASA Grade Assessment: II - A patient with mild systemic disease. After reviewing the risks and benefits, the patient was deemed in satisfactory condition to undergo the procedure. The anesthesia plan was to use moderate sedation / analgesia (conscious sedation). Immediately prior to administration of medications, the patient was re-assessed for adequacy to receive sedatives. The heart rate, respiratory rate, oxygen saturations, blood pressure, adequacy of pulmonary ventilation, and response to care were monitored throughout the procedure. The physical status of the patient was re-assessed after the procedure. After obtaining informed consent, the endoscope was passed under direct vision. Throughout the procedure, the patient's blood pressure, pulse, and oxygen saturations were monitored continuously. The gastroscope was introduced through the mouth, and advanced to the second part of duodenum. The upper GI endoscopy was accomplished without difficulty. The patient tolerated the procedure well. Scope In: 11:50:01 AM Scope Out: 11:54:25 AM Total Procedure Duration Time 0 hours 4 minutes 24 seconds Findings: LA Grade A (one or more mucosal breaks less than 5 mm, not extending between tops of 2 mucosal folds) esophagitis with no bleeding was found 34 to 36 cm from the incisors. Biopsies were taken with a cold forceps for histology. Verification of patient identification for the specimen was done. Estimated blood loss was minimal. Biopsies were taken with a cold forceps for histology. Verification of patient identification for the specimen was done. Estimated blood loss was minimal. One non-bleeding cratered gastric ulcer with no stigmata of bleeding was found in the stomach. The lesion was 6 mm in largest dimension. Biopsies were taken with a cold forceps for histology. Verification of patient identification for the specimen was done. Estimated blood loss was minimal. The first portion of the duodenum was normal. Impression: - LA Grade A reflux esophagitis. Biopsied. - Non-bleeding gastric ulcer with no stigmata of bleeding. Biopsied. - Normal first portion of the duodenum. Recommendation: - Discharge patient to home. - Resume previous diet. - Continue present medications. - Await pathology results. Procedure Code(s): --- Professional --- 49050, Esophagogastroduodenoscopy, flexible, transoral; with biopsy, single or multiple CPT copyright 2017 [employer]. All rights reserved. The codes documented in this report are preliminary and upon small stock facer review may be revised to meet current compliance requirements. Paul Trevino DO 11/11/2021 12:07:23 PM This report has been signed electronically. Number of Addenda: 1 Note Initiated On: 11/11/2021 11:28 AM Addendum Number: 1 Addendum Date: 02/09/2022 6:27:02 AM MAC was used as sedation for this procedure. Paul Trevino DO 02/09/2022 6:27:06 AM This report has been signed electronically.
--- NOTE | 2021-11-11 12:08 | OP.CCLET_ITS ---
02/09/2022 Albert Jeffries MD Re : Upper GI endoscopy procedure for Soraya Reilly Dear Dr. Jeffries This procedure was performed on November. My impressions and recommendations are as follows: Impressions : - LA Grade A reflux esophagitis. Biopsied. - Non-bleeding gastric ulcer with no stigmata of bleeding. Biopsied. - Normal first portion of the duodenum. Recommendations : - Discharge patient to home. - Resume previous diet. - Continue present medications. - Await pathology results. My findings are described in the full procedure note, which is enclosed. If I can be of further assistance, please feel free to contact me at . Sincerely, Paul Trevino, 11/11/2021 12:07:23 PM This report has been signed electronically.
== END 2021-11-11 12:37 | disposition home or self-care (01) ==
LOC: EN 10:46 → AC 10:46
PROVIDERS: Anesthesiology; PCP Family Medicine; Referring Provider Internal Medicine Gastroenterology; Visit Provider Internal Medicine Gastroenterology
PROC: 0DJ08ZZ Inspection of Upper Intestinal Tract, Via Natural or Artificial Opening Endoscopic (ICD-10-PCS; CPT 43235; principal; 2021-11-11 11:40)
DX: K20.90 Esophagitis, unspecified without bleeding (principal); K29.50 Unspecified chronic gastritis without bleeding; K25.9 Gastric ulcer, unspecified as acute or chronic, without hemorrhage or perforation; R12 Heartburn; Z79.899 Other long term (current) drug therapy
CPT/HCPCS: 43239; 81025; 88305; 88313; 88342; J7120; A4216; J2405

== ENCOUNTER → 2022-02-18 | Outpatient (CLI) | payer OTHER, SELFPAY ==
[2022-02-18 10:54] LABS: Absolute Lymphocyte Count 1.21 X10^3/uL (0.83-4.51); Absolute Neutrophil Count 2.6 X10^3/uL (2.0-7.7); Basophil# 0.05 X10^3/uL; Eosinophil# 0.32 X10^3/uL; Eosinophils% 6.7 % (0-5); Hematocrit 39.1 % (37-47); Hemoglobin 12.3 g/dL (12.0-15.0); Lymphocyte # 1.21 X10^3/ul (0.83-4.51); Lymphocyte % 25.2 % (19-41); Mean Corp Hgb Conc 31.5 g/dL (32-36); Mean Corpuscular Hgb 25.8 pg (27.0-32.0); Mean Platelet Vol. 9.2 fl (6.2-12.0); Monocyte# 0.56 X10^3/uL; Monocyte% 11.7 % (0-10); NRBC Flagged by Analyzer 0 % (0-5); Neutrophil # 2.64 X10^3/uL (2.7-7.7); Platelet Count 229 K/mm3 (150-450); RBC Distribution Width CV 15.2 % (11.6-14.6); RBC Distribution Width SD 45.1 fl (35.1-43.9); Red Blood Count 4.77 M/mm3 (4.2-5.4); White Blood Count 4.8 K/mm3 (4.4-11.0)
[2022-02-18 11:29] LABS: Ferritin 8 ng/mL (8-252); Iron 31 ug/dL (50-170); Iron Binding Capacity,Total 442 ug/dL (250-450)
== END | disposition home or self-care (01) ==
LOC: LAB 10:08
PROVIDERS: PCP Family Medicine; Referring Provider Nurse Practitioner Adult Health; Visit Provider Nurse Practitioner Adult Health
DX: D50.9 Iron deficiency anemia, unspecified (principal)
CPT/HCPCS: 36415; 82728; 83540; 83550; 85025

== ENCOUNTER → 2022-04-11 | Outpatient (CLI) | payer OTHER, SELFPAY ==
--- NOTE | 2022-04-11 | EMB_PTH ---
PATIENT: REINA BOSS LOC: [facility] U#:[id number] AGE/SX: 52/F ROOM: RE04/11/[address]: Dr. Germania Varner DO : 1970 BED: DIS: 04/11/2022 SPEC #: [id number] RECD: 04/11/22 10:32 STATUS: AUDI REQ #: [id number] KALLIE: 04/11/22 00:[address]: Germania Varner DEPT: SURGICAL PATHOLOGY RECD BY: Monica Romero ENTERED: 04/11/22 10:55 SP TYPE: ENDOM BX/C JIMY DR: Dr. Albert Jeffries MD Tissues: Endometrium, NOS Procedures: Surgery Specimen Level IV HEADER OPERATION: Endometrial biopsy PRE-OP DIAGNOSIS: Abnormal uterine bleeding TISSUE SUBMITTED: Endometrial biopsy MICROSCOPIC DIAGNOSIS Endometrium, biopsy: Superficial fragments of weakly proliferative to inactive endometrium. Scant strips of benign superficial endocervix. AM:becky 04/12/2022 MICROSCOPIC DESCRIPTION Slides are reviewed. GROSS DESCRIPTION Received in fixative is one container labeled with the patient's name and designated endometrial biopsy. The specimen consists of multiple irregular fragments of red-isaacs soft tissue that in aggregate measure 2.5 x 2.5 x 0.2 cm. The specimen is totally submitted in one cassette. / AM:becky 04/11/2022 TC:5 CPT: 56818
== END | disposition home or self-care (01) ==
LOC: LABSPEC 10:15
PROVIDERS: PCP Family Medicine; Visit Provider Student in an Organized Health Care Education/Training Program
DX: N93.9 Abnormal uterine and vaginal bleeding, unspecified (principal)
CPT/HCPCS: 88305

== ENCOUNTER → 2022-04-26 | Outpatient (CLI) | payer OTHER, SELFPAY ==
[2022-04-26 11:25] LABS: Follicle Stimulating Hormone 86.8 mIU/mL; Luteinizing Hormone 52.3 mIU/mL
== END | disposition home or self-care (01) ==
LOC: WOBLAB 09:22
PROVIDERS: PCP Family Medicine; Visit Provider Student in an Organized Health Care Education/Training Program
DX: N95.8 Other specified menopausal and perimenopausal disorders (principal)
CPT/HCPCS: 36415; 83001; 83002

== ENCOUNTER → 2022-09-13 | Outpatient (CLI) | payer BC, SELFPAY ==
--- NOTE | 2022-09-13 10:00 | EMB_PTH ---
PATIENT: REINA BOSS LOC: [facility] U#:[id number] AGE/SX: 52/F ROOM: RE09/13/[address]: Dr. Germania Varner DO : 1970 BED: DIS: 09/13/2022 SPEC #: [id number] RECD: 09/13/22 11:45 STATUS: AUDI REQ #: [id number] KALLIE: 09/13/22 10:[address]: Germania Varner DEPT: SURGICAL PATHOLOGY RECD BY: Monica Romero ENTERED: 09/13/22 13:16 SP TYPE: ENDOM BX/C JIMY DR: Dr. Albert Jeffries MD Tissues: Endometrium, NOS Procedures: Surgery Specimen Level IV HEADER OPERATION: Endometrial biopsy PRE-OP DIAGNOSIS: Benign endometrial hyperplasia TISSUE SUBMITTED: Endometrial biopsy MICROSCOPIC DIAGNOSIS Endometrial biopsy: Secretory endometrium. SJ:becky 09/14/2022 MICROSCOPIC DESCRIPTION Slides are reviewed. GROSS DESCRIPTION Received in fixative is one container labeled with the patient's name and designated endometrial biopsy. The specimen consists of multiple irregular and elongated fragments of isaacs tissue that in aggregate measure 2.5 x 1.5 x 0.2 cm. The specimen is totally submitted in one cassette. / AM:becky 09/13/2022 TC:4 CPT: 41716
== END | disposition home or self-care (01) ==
LOC: LABSPEC 11:05
PROVIDERS: PCP Family Medicine; Visit Provider Student in an Organized Health Care Education/Training Program
DX: N85.01 Benign endometrial hyperplasia (principal)
CPT/HCPCS: 88305

== ENCOUNTER → 2022-09-20 | Outpatient (CLI) | payer BC, SELFPAY ==
--- NOTE | 2022-09-20 13:15 | BI_ITS ---
MAMMOGRAPHY - BILATERAL SCREENING REASON FOR EXAM: Female, 52 years old. Routine annual screening examination. PERTINENT HISTORY: Non-contributory. TECHNIQUE: Digital bilateral breast jeannie (3D mammographic acquisition) in the CC and MLO projections. 2-D mediolateral oblique (MLO) and craniocaudad (CC) views of both breasts were obtained. CAD: Full Field Digital Mammography with Computer Added Detection was performed. COMPARISON: Comparison is made with prior study dated October 09, 2019 and September 20, 2018. Comparison also made to prior outside examination dated February 02, 2021. FINDINGS: Breast Composition: The breasts are extremely dense, which lowers the sensitivity of mammography. There is a 6.8 mm x 5.4 mm well-defined nodule in the central slightly medial aspect of the left breast. It is also evidence of a 3.7 mm x 5.5 mm well-defined nodule in the deep inferior medial aspect of the left breast. Correlation with ultrasound is recommended. No other significant abnormalities are identified. BI/SCRN MAMM (CAD)W/JEANNIE BILAT IMPRESSION: Small nodules are seen in the left breast as described. Correlation with ultrasound is recommended. ASSESSMENT CATEGORY: BIRADS Category 0: Incomplete. Need additional imaging evaluation. A letter regarding these results will be sent to the patient by the facility within 30 days. Approximately 10% of breast cancers are not detected by mammography. A normal mammogram should not delay biopsy of a clinically suspicious abnormality. [id number] Electronically Signed: Sekou Webb MD at 8:53 EDT ,
== END | disposition home or self-care (01) ==
LOC: OPBI 13:13
PROVIDERS: PCP Family Medicine; Referring Provider Student in an Organized Health Care Education/Training Program; Visit Provider Student in an Organized Health Care Education/Training Program
DX: Z12.31 Encounter for screening mammogram for malignant neoplasm of breast (principal)
CPT/HCPCS: 77063; 77067

== ENCOUNTER → 2022-09-30 | Outpatient (CLI) | payer BC, SELFPAY ==
--- NOTE | 2022-09-30 13:30 | US_ITS ---
STUDY: DIAGNOSTIC ULTRASOUND BREAST -LEFT REASON FOR EXAM: 52-year-old female called back for further assessment of indeterminate left breast findings on mammogram.. TECHNIQUE: Real-time grayscale and color sonographic images of the left upper and lower inner breast and retroareolar region. # OF IMAGES: 44 images and 3 cine clips COMPARISON: Screening mammogram from September 20, 2022.. FINDINGS: The left inner breast and left retroareolar breast were assessed from the 6:00 to 12:00 position. There are multiple anechoic cysts with posterior acoustic enhancement throughout the left breast. Largest cysts as follow: * 0.9 x 1.0 x 0.6 cm at the 12:00 to 1:00 position approximately 2 cm from the nipple. * 0.9 x 1.6 x 0.7 cm cluster of cysts at the 12:00 position approximately 1 cm from the nipple. * 0.5 x 0.7 x 0.5 cm at the 6:00 position approximately 2 cm from the nipple. Normal fibroglandular tissue in the remainder of the left breast without large suspicious masses identified.. US/Breast Limited Unilateral IMPRESSION: Multiple benign-appearing cysts throughout the imaged left inner breast, some of which likely correlates to findings seen on mammogram. Normal fibroglandular tissue in the remainder of the left breast without large suspicious masses identified. ASSESSMENT CATEGORY: BIRADS Category 2: Benign finding. A letter regarding these results will be sent to the patient by the facility within 30 days. RECOMMENDATION: Return to annual screening mammogram. If new or enlarging mass on physical examination, return for diagnostic mammogram and ultrasound is recommended. Electronically Signed: Sebastian Rojas DO at 15:40 EDT ,
== END | disposition home or self-care (01) ==
LOC: OPUS 13:27
PROVIDERS: PCP Family Medicine; Referring Provider Student in an Organized Health Care Education/Training Program; Visit Provider Student in an Organized Health Care Education/Training Program
DX: N63.20 Unspecified lump in the left breast, unspecified quadrant (principal); R92.8 Other abnormal and inconclusive findings on diagnostic imaging of breast
CPT/HCPCS: 76642

== ENCOUNTER 2023-05-10 05:59 | Day surgery (SDC) | payer BC, SELFPAY ==
--- OUTSIDE RECORDS SUMMARY | 2023-05-10 06:12 | XMS RPT_ITS | CCD ---
Author Name Unknown Address [address] [place] [address] Organization [facility] Care Team Providers Care Commissary Manager Name Role Phone Lisette Escamilla MD Primary Care Provider [phone] LISETTE ESCAMILLA Primary Care Unavailable PEDRO LORA Referring Unavailable [facility] Primary Care Provider Unav ailable PEDRO LORA Attending Unavailable PEDRO LORA Referring Unavailable [facility] Primary Care Unavailable Lisette Escamilla MD Primary Care Provider [phone] LISETTE ESCAMILLA Primary Care Unavailable DARCY HOGAN Attending Unavailable LISETTE ESCAMILLA Primary Care Unavailable JACKIE TORRES Attending Unavailable LISETTE ESCAMILLA Primary Care Unavailable CHRISTIANO NIETO Attending Unavailable LISETTE ESCAMILLA Primary Care Unavailable LISETTE ESCAMILLA Referring Unavailable LISETTE ESCAMILLA Attending Unavailable LISETTE ESCAMILLA Primary Care Unavailable LISETTE ESCAMILLA Primary Care Unavailable DARCY HOGAN Referring Unavailable Medications Current Medications Medication Drug Class(es) Dates Sig (Normalized) Sig (Original) predniSONE 20 mg oral tablet (2 sources) Start: 05-09-2022 End: 05-14-2022 take 2 tablets by mouth once daily predniSONE (DELTASONE) 20 mg tablet Indications: Sore throat , URI, acute Take 2 tablets by mouth once daily for 5 days. 10 tablet 0 05/09/2022 05/14/2022 Active Completed/Discontinued Medications Medication Drug Class(es) Dates Sig (Normalized) Sig (Original) cholestyramine resin 4000 mg powder for oral suspension (8 sources) Bile Acid Sequestrant Start: 11-10-2020 End: 06-14-2022 take 4 g by mouth twice daily at mealtime cholestyramine-suc noah (QUESTRAN) 4 gram powder Take 4 g by mouth twice daily with meals. 60 Packet 5 11/10/2020 06/14/2022 Discontinued Problems Active Problems Problem Classification Problem Date Documented Da te Episodic/Chronic Esophageal disorders (18 sources) Gastro-esophageal reflux disease with esophagitis; Translations: [GERD with esophagitis] Onset: 02-01-2018 02-01-2018 Chronic Essential hypertension (17 sources) Hypertensive disorder; Translations: [Essential (primary) hypertension] Onset: 05-11-2022 Chronic Immunizations and screening for infectious disease (2 sources) Needs influenza immunization; Translations: [Encounter for immunization] Onset: 04-12-2023 Episodic Inflammation; infection of eye (except that caused by tuberculosis or sexually transmitteddisease) (1 source) Viral conjunctivitis; Translations: [Viral conjunctivitis, unspecified] Episodic Intestinal infection (1 source) Viral gastroenteritis; Translations: [Viral intestinal infection, unspecified] Episodic Melanomas of skin (11 sources) Malignant melanoma of unspecified lower limb, including hip; Translations: [Malignant melanoma] Onset: 01-20-2023 02-28-2023 Chronic Other circulatory disease (1 source) Respiratory symptom; Translations: [Other specified symptoms and signs involving the circulatory and respiratory systems] Episodic Other gastrointestinal disorders (1 source) Diarrhea; Translations: [Diarrhea, unspecified] Episodic Other nutritional; endocrine; and metabolic disorders (1 source) Weight gain; Translations: [Abnormal weight gain] Episodic Other upper respiratory infections (2 sources) Sore throat symptom; Translations: [Acute pharyngitis, unspecified] Episodic Past or Other Problems Problem Classification Problem Date Documented Da te Episodic/Chronic Biliary tract disease (16 sources) Biliary dyskinesia; Translations: [Other specified diseases of gallbladder] Onset: 03-12-2020 11-10-2020 Episodic Nausea and vomiting (16 sources) Nausea; Translations: [Nausea] Onset: 03-12-2020 03-12-2020 Episodic Other gastrointestinal disorders (17 sources) Loose stool; Translations: [Other fecal abnormalities] Onset: 03-12-2020 05-03-2021 Episodic Other infections; including parasitic (3 sources) Personal history of other infectious and parasitic diseases; Translations: [History of COVID-19] Onset: 05-06-2020 04-12-2023 Episodic Other nutritional; endocrine; and metabolic disorders (1 source) Abnormal weight gain; Translations: [Weight gain] Onset: 06-14-2022 Episodic Other screening for suspected conditions (not mental disorders or infectious disease) (20 sources) Patient encounter status; Translations: [Encounter for screening for cardiovascular disorders] Onset: 06-07-2016 06-07-2016 Episodic Viral infection (13 sources) Disease caused by 2019-nCoV; Translations: [COVID-19] Onset: 05-06-2020 05-06-2020 Episodic Results Test Name Value Interpretation Reference Range Facil ity Vital Signs Date Time Vital Sign Value Performing Clinician Facility 04-12-2023 08:38-0500 Diastolic blood pressure 84 mm[Hg] Lisette Escamilla MD Work Phone: [facility] 04-12-2023 08:38-0500 Systolic blood pressure 124 mm[Hg] Lisette Escamilla MD Work Phone: [facility] 04-12-2023 08:21-0500 Body weight 77.56 kg Lisette Escamilla MD Work Phone: [facility] 04-12-2023 08:21-0500 Heart rate 84 /min Lisette Escamilla MD Work Phone: [facility] 04-12-2023 08:21-0500 Respiratory rate 18 /min Lisette Escamilla MD Work Phone: [facility] 06-14-2022 13:31-0500 Diastolic blood pressure 86 mm[Hg] Darcy VALDOVINOS-C Work Phone: [facility] 06-14-2022 13:31-0500 Systolic blood pressure 122 mm[Hg] Darcy VALDOVINOS-C Work Phone: [facility] 06-14-2022 13:01-0500 Body height 167 cm Darcy Hogan PA-C Work Phone: [facility] 06-14-2022 13:01-0500 Body weight 73.48 kg Darcy Hogan PA-C Work Phone: [facility] 06-14-2022 13:01-0500 Heart rate 82 /min Darcy Hogan PA-C Work Phone: [facility] 06-14-2022 13:01-0500 Respiratory rate 16 /min Darcy VALDOVINOS-C Work Phone: [facility] 06-14-2022 13:01-0500 SaO2% (BldA) [Mass fraction] 98 % Darcy VALDOVINOS-C Work Phone: [facility] 05-11-2022 10:33-0500 Diastolic blood pressure 107 mm[Hg] Jackie Podlogar BOTTLING ATTENDANT.MANAGER LOCATION Work Phone: [facility] 05-11-2022 10:33-0500 Heart rate 97 /min Jackie Podlogar BOTTLING ATTENDANT.MANAGER LOCATION Work Phone: [facility] 05-11-2022 10:33-0500 Systolic blood pressure 161 mm[Hg] Jackie Podlogar BOTTLING ATTENDANT.MANAGER LOCATION Work Phone: [facility] 05-11-2022 10:07-0500 Body temperature 100.29 [degF] Jackie Podlogar BOTTLING ATTENDANT.MANAGER LOCATION Work Phone: [facility] 05-11-2022 10:07-0500 Body weight 70.58 kg Jackie Podlogar BOTTLING ATTENDANT.MANAGER LOCATION Work Phone: [facility] 05-11-2022 10:07-0500 Respiratory rate 16 /min Jackie Podlogar BOTTLING ATTENDANT.MANAGER LOCATION Work Phone: [facility] 05-11-2022 10:07-0500 SaO2% (BldA) [Mass fraction] 96 % Jackie Podlogar BOTTLING ATTENDANT.MANAGER LOCATION Work Phone: [facility] 05-09-2022 10:03-0500 Body temperature 98.71 [degF] Herb Shaffer BOTTLING ATTENDANT.MANAGER LOCATION Work Phone: [facility] 05-09-2022 10:03-0500 Body weight 69.76 kg Herb Shaffer BOTTLING ATTENDANT.MANAGER LOCATION Work Phone: [facility] 05-09-2022 10:03-0500 Diastolic blood pressure 110 mm[Hg] Herb Shaffer BOTTLING ATTENDANT.MANAGER LOCATION Work Phone: [facility] 05-09-2022 10:03-0500 Heart rate 101 /min Herb Shaffer BOTTLING ATTENDANT.MANAGER LOCATION Work Phone: [facility] 05-09-2022 10:03-0500 Respiratory rate 20 /min Herb Shaffer BOTTLING ATTENDANT.MANAGER LOCATION Work Phone: [facility] 05-09-2022 10:03-0500 SaO2% (BldA) [Mass fraction] 99 % Herb Shaffer BOTTLING ATTENDANT.MANAGER LOCATION Work Phone: [facility] 05-09-2022 10:03-0500 Systolic blood pressure 162 mm[Hg] Herb Shaffer BOTTLING ATTENDANT.MANAGER LOCATION Work Phone: [facility] 09-20-2021 11:07-0400 Body temperature 98.6 [degF] Darcy Hogan PA-C Work Phone: [facility] 09-20-2021 11:07-0400 Body weight 67.59 kg Darcy Hogan PA-C Work Phone: [facility] 09-20-2021 11:07-0400 Diastolic blood pressure 100 mm[Hg] Darcy Hogan PA-C Work Phone: [facility] 09-20-2021 11:07-0400 Heart rate 68 /min Darcy Hogan PA-C Work Phone: [facility] 09-20-2021 11:07-0400 Respiratory rate 18 /min Darcy Hogan PA-C Work Phone: [facility] 09-20-2021 11:07-0400 Systolic blood pressure 138 mm[Hg] Darcy Hogan PA-C Work Phone: [facility] Encounters Encounter Date Encounter Type Care Provider Facility Start: 04-27-2023 End: 04-27-2023 ambulatory CHRISTIANO NIETO Facility:[facility] Start: 04-12-2023 Telephone encounter Lisette Escamilla MD Work Phone: [facility] Start: 04-12-2023 End: 04-12-2023 ambulatory LISETTE ESCAMILLA Facility:[facility] Start: 04-12-2023 End: 04-12-2023 Patient encounter procedure Lisette Escamilla MD Work Phone: [facility] [place] Procedures Date Procedure Procedure Detail Performing Clinician Start: 04-12-2023 INFLUENZA VACCINE, A GE 6 MO - 64 YR, QUADRIVALENT (AFLURIA, FLULAVAL, FLUZONE) Lisette Escamilla MD Work Phone: Start: 04-12-2023 PFIZER-BIONTECH COVI D-19 VACCINE ( SEASON) AGE 12+ YR Lisette Escamilla MD Work Phone: Start: 02-28-2023 Lymphatics & lymph n odes imaging Pedro Lora MD Work Phone: Start: 01-20-2023 Lymphatics & lymph n odes imaging [facility] Provider Start: 06-14-2022 PFIZER-BIONTECH COVI D-19 BIVALENT BOOSTER VACCINE, AGE 12+ YR Darcy Hogan PA-C Work Phone: Start: 06-14-2022 INFLUENZA VACCINE QUADRIVALENT 6 MO - 64 YRS IM Darcy Hogan PA-C Work Phone: Start: 06-14-2022 Lipid 1996 panel - S sangeeta or Plasma [facility]fi 1 Work Phone: Start: 05-09-2022 STREP A MOLECULAR (POC) Linda Wesley PA-C Work Phone: Start: 05-26-2021 Colonoscopy Lisette connors MD Work Phone: Start: 03-10-2021 Mammography Lisette connors MD Work Phone: Start: 01-11-2021 Adult depression scr eening assessment Lisette Escamilla MD Work Phone: Plan of Treatment Date Care Activity Detail Author Start: 05-26-2031 Colonoscopy COLONOSCOPY [facility] Start: 05-26-2031 COLORECTAL CANCER SCREENING COLORECTAL CANCER SCREENING [facility] Start: 06-14-2027 Lipid 1996 panel - Serum or Plasma Lipid Screening [facility] Start: 06-14-2027 LIPID SCREEN LIPID SCREEN [facility] Start: 09-30-2026 PAP TESTING PAP TESTING [facility] Start: 06-14-2026 DTaP/Tdap/Td Vaccines (2 - Td or Tdap) DTaP/Tdap/Td Vaccines (2 - Td or Tdap) [facility] Start: 06-14-2026 Urine microalbumin profile [facility] Start: 06-14-2025 DIABETES SCREEN DIABETES SCREEN [facility] Start: 06-14-2025 Diabetes Screening Diabetes Screening [facility] Start: 09-26-2024 HPV TESTING HPV TESTING [facility] Start: 09-26-2024 PAP TESTING PAP TESTING [facility] Start: 09-20-2024 DIABETES SCREEN DIABETES SCREEN [facility] Start: 04-12-2024 Annual PCP Team Chronic Disease Visit Annual PCP Team Chronic Disease Visit [facility] Start: 09-29-2023 End: 12-29-2023 Comprehensive metabolic 2000 panel - Serum or Plasma COMP METABOLIC PANEL Lab Routine Hypertension, essential Expected: 09/29/2023, Expires: 12/29/2023 [facility] Work Phone: Immunizations Immunization Date Immunization Notes Care Provider Fa [facility] 04-12-2023 COVID-19 vaccine, ag e 12+ yr, season (PFIZER-BIONTECH) Lisette Escamilla MD Work Phone: [facility] 04-12-2023 influenza, injectabl e, quadrivalent, contains preservative Lisette Escamilla MD Work Phone: [facility] 06-14-2022 COVID-19 booster vaccine, age 12+ yr, bivalent (PFIZER-BIONTECH) Darcy Hogan PA-C Work Phone: [facility] 06-14-2022 influenza, injectabl e, quadrivalent, contains preservative Darcy Hogan PA-C Work Phone: [facility] 06-14-2022 influenza virus vacc ine, unspecified formulation Pedro Lora MD Work Phone: [facility] 06-14-2016 tetanus toxoid, redu du diphtheria toxoid, and acellular pertussis vaccine, adsorbed Lisette Escamilla MD Work Phone: [facility] Payers Date Payer Category Payer Unknown [id number] 2018 Unknown MMO MMO [employer] [id number] 2018-Present [phone] [address] [place] [address] PPO [id number] 2018 Unknown [id number] 2018 Unknown [id number] Social History Date Type Detail Facility Tobacco smoking stat [facility] Never smoked tobacco [facility] Start: 09-20-2021 End: 04-12-2023 Alcohol intake Current drinker of alcohol (finding) [facility] Start: 01-12-2021 End: 05-11-2022 History SDOH Alcohol Frequency 2 [facility] Start: 01-12-2021 End: 05-11-2022 History SDOH Alcohol Std Drinks 1 [facility] Start: 01-12-2021 History SDOH Social Connections Phone 5 [facility] Start: 01-12-2021 End: 05-11-2022 History SDOH Social Connections Get Together 3 [facility] Start: 01-11-2021 Education 14 [facility] Start: 1970 Sex Assigned At Not on file [facility] Start: 09-10-2021 End: 09-20-2021 Exposure to SARS-CoV-2 (event) Not sure [facility] Start: 05-11-2022 History SDOH Social Connections Phone 4 [facility] Start: 05-11-2022 History SDOH Physical Activity MPS 6 [facility] Start: 05-11-2022 End: 04-12-2023 History of Social function [facility] Start: 05-11-2022 End: 04-12-2023 Social connection and isolation panel [facility] Do you belong to any clubs or organizations such as adventism groups, unions, fraternal or athletic groups, or school groups? No [facility] Are you now , , , , never or living with a partner? [facility] How often to you hav e a drink containing alcohol? Monthly or less [facility] Average Number of Drinks Not on file [facility] Work Phone: How often do you hav e 6 or more drinks on 1 occasion? Less than monthly [facility] How hard is it for y ou to pay for the very basics like food, housing, medical care, and heating Not very hard [facility] Do you feel stress - tense, restless, nervous, or anxious, or unable to sleep at night because your mind is troubled all the time - these days [OSQ] To some extent [facility] (I/We) worried wheth er (my/our) food would run out before (I/we) got money to buy more. Never true [facility] Tobacco smoking stat [facility] Tobacco smoking consumption unknown [facility] Clinical Notes 09-20-2021 to 04-27-2023 Telephone Encounter - Ceci Sesay - 04/13/2023 9:01 AM ESTTelephone Encounter - Adams Rios DO - 04/12/2023 5:47 PM ESTTelephone Encounter - Erika Martin LPN - 04/12/2023 3:42 PM EST Note Date & Type Note Facility 04-27-2023 Note HNO ID: [id number] Author: Christiano Nieto MD Service: ? Author Type: Physician Type: Progress Notes Filed: 04/27/2023 3:56 PM Note Text: HISTORY OF PRESENT ILLNESS: Reina Reilly is a 53 year old female dark mole right thigh, was there a long time, but changed, went to dermatology, biopsy showed melanoma. Now post wide excision right thigh and right low back melanoma 04-12-23: Right thigh , no residual melanoma, SLNB neg pT1aN0 no ulceration Back melanoma resection with SLNB pT1aN0 no ulceration. CLINICAL IMPRESSION: 2 early stage melanomas RECOMMENDATION/PLAN: 1. Per NCCN no further therapy needed 2. Plan follow up with dermatology as planned 3. See back [address] check 4, consult with medical genetics given 2 melanomas, family history of prostate cancer Written and verbal health teaching given to patient, patient verbalizes understanding and agrees with treatment plan. PAST MEDICAL HISTORY Diagnosis Date GERD with esophagitis 02/01/2018 Hypertension, essential 05/11/2022 Loose stools 03/12/[address] Belinda ONEIL WITHIN PROCEDURE CODE Malignant melanoma of right lower leg (HCC) 02/28/2023 Seeing [facility]: Dr. Pedro Lora Nausea 03/12/2020 PAST SURGICAL HISTORY Procedure Laterality Date COLONOSCOPY FLX DX W/COLLJ SPEC WHEN PFRMD 10/02/2020 ESOPHAGOGASTRODUODENOSCOPY TRANSORAL DIAGNOSTIC 03/27/2020 EGD LAPS SURG CHOLECYSTECTOMY W/CHOLANGIOGRAPHY 01/21/2021 FAMILY HISTORY Problem Relation Age of Onset Heart Mother valve replacement and valve repair GERD Father Cancer Maternal Grandmother Colon Cancer Paternal Grandmother Coronary Artery Disease Paternal Grandmother 83 Heart Attack Paternal Grandmother Stroke Paternal Grandfather Social History Tobacco Use Smoking status: Never Smokeless tobacco: Never Vaping Use Vaping Use: Never used Substance Use Topics Alcohol use: Yes Comment: seldom Drug use: No ALLERGIES: ALLERGIES No Known Allergies CURRENT OUTPATIENT MEDICATIONS: famotidine (PEPCID) 40 mg tablet Take 0.5 tablets by mouth daily at bedtime. losartan (COZAAR) 25 mg tablet Take 1 tablet by mouth once daily. colestipol (COLESTID) 1 gram tablet Take 1 g by mouth once daily. MULTIVITAMIN ORAL Take by mouth once daily. medroxyPROGESTERone (PROVERA, CYCRIN) 10 mg tablet (Patient not taking: Reported on 04/12/2023) REVIEW OF SYSTEMS: GENERAL: No fever, night sweats, weight loss or malaise. All other reviewed and negative other than HPI. PHYSICAL EXAMINATION: VITAL SIGNS: BP 132/85 Pulse 82 Temp 98.4 Ht 5' 4.961 (1.65m) Wt 171 lb (77.6kg) SpO2 99% LMP 06/06/2022 BMI 28.49 kg/(m2). GENERAL APPEARANCE: Well appearing, in no acute distress, alert and oriented x3, well-hydrated, well nourished. SKIN: right low back scar clean well healed. I spent a total of 60 minutes on the date of the service which included preparing to see the patient, [id number] patient care, completing clinical documentation, obtaining and/or reviewing separately obtained history, counseling and educating the patient/family/caregiver, ordering medications, tests, or procedures, independently interpreting results (not separately reported), and communicating results to the patient/family/caregiver. Reviewing guidelines Electronically Signed: Christiano Nieto MD April 27, 2023 10:52 AM [facility] 04-13-2023 Miscellaneous Notes Scheduled with patient Next new patient time with either me or Dr. Nieto. Adams Rios DO Pathology received. Chart placed in Dr. Rios's mailbox for review. Erika Martin LPN Malignant melanoma of right lower leg (HCC) [C43.71] and back. Comments Not sure if referral from [facility] came through yet. There are scanned in reports under the heading ortho from 03/03/23- 03/21/23.. No pathology in scanned documents, only OV and op notes. Pathology requested from [facility]. Erika Martin LPN For reference this was sent to radiation oncology. I will forward to hematology/ oncology. Patient has oncology order that needs scheduled. Please review. Lilliana Love April 12, 2023 9:19 AM documented in this encounter [facility] 04-12-2023 Miscellaneous Notes See phone note from 04/12/2023. Erika Martin LPN Spoke with pt. Informed we needed pathology, and H&P notes from referring physician, so we can get her scheduled. She will reach out to them to get information faxed. Michaela Curtis LPN Message left on pts. Voicemail we had received by fax some pictures and a copy of her drivers license and insurance card. Not sure why? Were these sent to us in error? Michaela Curtis LPN documented in this encounter [facility] 04-12-2023 Note HNO ID: [id number] Author: Lisette Escamilla MD Service: ? Author Type: Physician Type: Progress Notes Filed: 04/12/2023 3:07 PM Note Text: Chief Complaint Patient presents with: Follow Up HPI Reina Reilly is a 53 year old female who presents here today for 6 month follow up. Patient with hx of HTN, Gerd and those as below. Any new concerns today? None Any recent Er/hospital visits? None BP readings at home? 138/40-87/90 Patient has been seeing [facility] last visit 03/21/2023. Patient has had 3 surgeries. (2) on her back for melanoma and one procedure on her right thigh. Patient has been seeing Dr. Trevino. We will request most recent office visit. Patient was just prescribed famotidine 40 mg at bedtime. She has had not picked up prescription yet. Last 5 Encounter Wt Readings: Date: Wt: 06/14/2022 73.5 kg (162 lb) 05/11/2022 70.6 kg (155 lb 9.6 oz) 05/09/2022 69.8 kg (153 lb 12.8 oz) 09/20/2021 67.6 kg (149 lb) 02/23/2021 68 kg (150 lb) Last 10 Encounter BP Readings: Date: BP: 06/14/2022 132/86 05/11/2022 161/107[HUBERT BP[ 05/09/2022 162/110 09/20/2021 138/100 02/23/2021 142/72 02/01/2021 124/78 01/21/2021 143/71 Past medical history, appointments, medications, allergies reviewed. Previous Medical History PAST MEDICAL HISTORY Diagnosis Date GERD with esophagitis 02/01/2018 Hypertension, essential 05/11/2022 LOS WITHIN PROCEDURE CODE Malignant melanoma of right lower leg (HCC) 02/28/2023 Seeing [facility]: Dr. Pedro Lora Nausea 03/12/2020 Previous Surgical History PAST SURGICAL HISTORY Procedure Laterality Date COLONOSCOPY FLX DX W/COLLJ SPEC WHEN PFRMD 10/02/2020 ESOPHAGOGASTRODUODENOSCOPY TRANSORAL DIAGNOSTIC 03/27/2020 EGD LAPS SURG CHOLECYSTECTOMY W/CHOLANGIOGRAPHY 01/21/2021 Family History FAMILY HISTORY Problem Relation Age of Onset Colon Cancer Paternal Grandmother Coronary Artery Disease Paternal Grandmother 83 Stroke Paternal Grandfather Heart Mother valve replacement and valve repair Patient Allergies ALLERGIES No Known Allergies Current Medications Current Outpatient Medications on File Prior to Visit Medication Sig losartan (COZAAR) 25 mg tablet Take 1 tablet by mouth once daily. medroxyPROGESTERone (PROVERA, CYCRIN) 10 mg tablet colestipol (COLESTID) 1 gram tablet Take 1 g by mouth twice daily. MULTIVITAMIN ORAL Take by mouth once daily. No current facility-administered medications on file prior to visit. Social History Social History Tobacco Use Smoking status: Never Smokeless tobacco: Never Vaping Use Vaping Use: Never used Substance Use Topics Alcohol use: Yes Comment: seldom Drug use: No Review of Symptoms REVIEW OF SYSTEMS GENERAL: No weight loss, malaise or fevers NECK: Negative for lumps, goiter, pain and significant neck swelling RESPIRATORY: Negative for cough, hemoptysis, wheezing, COPD, dyspnea or shortness of breath CARDIOVASCULAR: Negative for chest pain, leg swelling, hypertension, CHF or palpitations GI: No nausea, vomiting, or increased diarrhea and No frequent heartburn or reflux symptoms. See HPI ENDOCRINE: Negative for cold or heat intolerance, polyuria, polydipsia and goiter NEURO: No history of headaches, syncope, paralysis, seizures or tremors EXAM: BP 152/94 (BP Site: Right Arm, BP Position: Sitting, BP Cuff Size: Regular Adult) Pulse 84 Resp 18 Wt 77.6 kg (171 lb) LMP 06/06/2022 (Approximate) BMI 27.81 kg/m? Last 5 Encounter Wt Readings: Date: Wt: 04/12/2023 77.6 kg (171 lb) 06/14/2022 73.5 kg (162 lb) 05/11/2022 70.6 kg (155 lb 9.6 oz) 05/09/2022 69.8 kg (153 lb 12.8 oz) 09/20/2021 67.6 kg (149 lb) General Appearance: Well appearing, alert, in no acute distress, well-hydrated, well nourished. and Overweight. Neck: Supple, no adenopathy; thyroid symmetric, normal size, no bruits. Lungs: Lungs clear to auscultation. No wheezing, rhonchi, rales.. Heart: RRR without murmur, gallop, or rubs. No ectopy. Abdomen: Normal abdominal exam, Abdomen soft, non-tender. Bowel sounds normal. No masses, organomegaly. Peripheral Pulses: Normal. Health Maintenance List Hepatitis B Vaccine(1 of 3 - 3-dose series) Never done BP Controlled (<130/80) Never done Shingrix Vaccine(1 of 2) Never done Covid-19 Vaccine() due on 01/06/2023 Hepatitis C Screening due on 06/14/2023 HIV Screening due on 06/14/2023 Annual PCP Team Chronic Disease Visit due on 06/14/2023 Mammogram Screening due on 09/21/2023 HPV Testing due on 09/26/2024 Diabetes Screening due on 06/14/2025 DTaP,Tdap,Td Vaccine(2 - Td or Tdap) due on 06/14/2026 Pap Testing due on 09/30/2026 Lipid Screening due on 06/14/2027 Colorectal Cancer Screening due on 05/26/2031 Depression Assessment Completed HPV Vaccine Aged Out Influenza Vaccine Discontinued Data reviewed Component Latest Ref Rng AND Units 06/14/2022 Protein, Total 6 (more content not included)... [facility] 04-12-2023 Instructions Lisette Escamilla MD - 04/12/2023 8:32 AM EST If you are thinking of getting the shingrix vaccine for the prevention of shingles please check with insurance to see if covered. Please get labs and urine test done on or after 09/29/2023 prior to your next visit. documented in this encounter [facility] 04-12-2023 History of Presen t illness Narrative Chief Complaint Patient presents with: Follow Up HPI Reina Reilly is a 53 year old female who presents here today for 6 month follow up. Patient with hx of HTN, Gerd and those as below. Any new concerns today? None Any recent Er/hospital visits? None BP readings at home? 138/40-87/90 Patient has been seeing [facility] last visit 03/21/2023. Patient has had 3 surgeries. (2) on her back for melanoma and one procedure on her right thigh. Patient has been seeing Dr. Trevino. We will request most recent office visit. Patient was just prescribed famotidine 40 mg at bedtime. She has had not picked up prescription yet. Last 5 Encounter Wt Readings: Date: Wt: 06/14/2022 73.5 kg (162 lb) 05/11/2022 70.6 kg (155 lb 9.6 oz) 05/09/2022 69.8 kg (153 lb 12.8 oz) 09/20/2021 67.6 kg (149 lb) 02/23/2021 68 kg (150 lb) Last 10 Encounter BP Readings: Date: BP: 06/14/2022 132/86 05/11/2022 161/107[HUBERT BP[ 05/09/2022 162/110 09/20/2021 138/100 02/23/2021 142/72 02/01/2021 124/78 01/21/2021 143/71 Past medical history, appointments, medications, allergies reviewed. Previous Medical History PAST MEDICAL HISTORY Diagnosis Date GERD with esophagitis 02/01/2018 Hypertension, essential 05/11/2022 LOS WITHIN PROCEDURE CODE Malignant melanoma of right lower leg (HCC) 02/28/2023 Seeing [facility]: Dr. Pedro Lora Nausea 03/12/2020 Previous Surgical History PAST SURGICAL HISTORY Procedure Laterality Date COLONOSCOPY FLX DX W/COLLJ SPEC WHEN PFRMD 10/02/2020 ESOPHAGOGASTRODUODENOSCOPY TRANSORAL DIAGNOSTIC 03/27/2020 EGD LAPS SURG CHOLECYSTECTOMY W/CHOLANGIOGRAPHY 01/21/2021 Family History FAMILY HISTORY Problem Relation Age of Onset Colon Cancer Paternal Grandmother Coronary Artery Disease Paternal Grandmother 83 Stroke Paternal Grandfather Heart Mother valve replacement and valve repair Patient Allergies ALLERGIES No Known Allergies Current Medications Current Outpatient Medications on File Prior to Visit Medication Sig losartan (COZAAR) 25 mg tablet Take 1 tablet by mouth once daily. medroxyPROGESTERone (PROVERA, CYCRIN) 10 mg tablet colestipol (COLESTID) 1 gram tablet Take 1 g by mouth twice daily. MULTIVITAMIN ORAL Take by mouth once daily. No current facility-administered medications on file prior to visit. Social History Social History Tobacco Use Smoking status: Never Smokeless tobacco: Never Vaping Use Vaping Use: Never used Substance Use Topics Alcohol use: Yes Comment: seldom Drug use: No Review of Symptoms REVIEW OF SYSTEMS GENERAL: No weight loss, malaise or fevers NECK: Negative for lumps, goiter, pain and significant neck swelling RESPIRATORY: Negative for cough, hemoptysis, wheezing, COPD, dyspnea or shortness of breath CARDIOVASCULAR: Negative for chest pain, leg swelling, hypertension, CHF or palpitations GI: No nausea, vomiting, or increased diarrhea and No frequent heartburn or reflux symptoms. See HPI ENDOCRINE: Negative for cold or heat intolerance, polyuria, polydipsia and goiter NEURO: No history of headaches, syncope, paralysis, seizures or tremors EXAM: BP 152/94 (BP Site: Right Arm, BP Position: Sitting, BP Cuff Size: Regular Adult) Pulse 84 Resp 18 Wt 77.6 kg (171 lb) LMP 06/06/2022 (Approximate) BMI 27.81 kg/m Last 5 Encounter Wt Readings: Date: Wt: 04/12/2023 77.6 kg (171 lb) 06/14/2022 73.5 kg (162 lb) 05/11/2022 70.6 kg (155 lb 9.6 oz) 05/09/2022 69.8 kg (153 lb 12.8 oz) 09/20/2021 67.6 kg (149 lb) General Appearance: Well appearing, alert, in no acute distress, well-hydrated, well nourished. and Overweight. Neck: Supple, no adenopathy; thyroid symmetric, normal size, no bruits. Lungs: Lungs clear to auscultation. No wheezing, rhonchi, rales.. Heart: RRR without murmur, gallop, or rubs. No ectopy. Abdomen: Normal abdominal exam, Abdomen soft, non-tender. Bowel sounds normal. No masses, organomegaly. Peripheral Pulses: Normal. Health Maintenance List Hepatitis B Vaccine(1 of 3 - 3-dose series) Never done BP Controlled (<130/80) Never done Shingrix Vaccine(1 of 2) Never done Covid-19 Vaccine( - season) due on 01/06/2023 Hepatitis C Screening due on 06/14/2023 HIV Screening due on 06/14/2023 Annual PCP Team Chronic Disease Visit due on 06/14/2023 Mammogram Screening due on 09/21/2023 HPV Testing due on 09/26/2024 Diabetes Screening due on 06/14/2025 DTaP,Tdap,Td Vaccine(2 - Td or Tdap) due on 06/14/2026 Pap Testing due on 09/30/2026 Lipid Screening due on 06/14/2027 Colorectal Cancer Screening due on 05/26/2031 Depression Assessment Completed HPV Vaccine Aged Out Influenza Vaccine Discontinued Data reviewed Component Latest Ref Rng & Units 06/14/2022 Protein, Total 6.3 - 8.0 g/dL 7.3 Albumin 3.9 - 4.9 g/dL 3.8 (L) Calcium 8.5 - 10.2 mg/dL 9.0 Bilirubin, Total 0.2 - 1.3 mg/dL 0.4 Alkaline Phosphatase 34 - 123 U/L 56 AST 13 - 35 U/L 15 ALT 7 - 38 U/L 11 Glucose 74 - 99 mg/dL 88 BUN 7 - 21 mg/dL 17 Creatinine 0.58 - 0.96 mg/dL 0.77 Sodium 136 - 144 mmol/L 137 Potassium 3.7 - 5.1 mmol/L 4.2 Chloride 97 - 105 mmol/L 103 CO2 22 - 30 mmol/L 25 Anion Gap 9 - 18 mmol/L 9 eGFR >=60 mL/min/1.73m 94 Total Cholesterol, Nonfasting <200 mg/dL 147 Triglycerides, Nonfasting <150 mg/dL 52 HDL Cholesterol, Nonfasting >39 mg/dL 49 LDL Cholesterol, Nonfasting <100 mg/dL 88 Non HDL Cholesterol, Nonfasting <130 mg/dL 98 VLDL Cholesterol, Nonfasting <30 mg/dL 10 Total Chol/HDL Ratio, Nonfasting <5.10 mg/dL 3.00 LDL/HDL Ratio, Nonfasting <2.54 mg/dL 1.80 Hemoglobin A1C 4.3 - 5.6 % 5.1 Estimated Average Glucose mg/dL 100 TSH 0.270 - 4.200 mIU/L 1.600 A/P ASSESSMENT/PLAN: 1. Hypertension, essential - ICD9: 401.9, ICD10: I10 (primary diagnosis) - Controlled - Continue current medications - Recommend home blood pressure monitoring, to bring results to next visit - Encouraged sodium restriction, DASH or Mediterranean diet - Recommend regular aerobic exercise 2. Malignant melanoma of right lower leg (HCC) - ICD9: 172.7, ICD10: C43.71 - cont to f/u with Derm - CONSULT TO ONCOLOGY 3. Gastroesophageal reflux disease with esophagitis without hemorrhage - ICD9: 530.81, 530.10, ICD10: K21.00 - Continue treatment with Pepcid 40 mg QD 4. Loose stools - ICD9: 787.7, ICD10: R19.5 - seeing GI 5. Encounter for immunization - ICD9: V03.89, ICD10: Z23 - [facility] COVID-19 VACCINE (2022- SEASON) AGE 12+ YR: given - INFLUENZA VACCINE, AGE 6 MO - 64 YR, QUADRIVALENT (AFLURIA, FLULAVAL, FLUZONE): given F/u 6 months WAE check CMP, Lipid, UA and A1c prior Lisette Escamilla MD documented in this encounter [facility] 03-15-2023 Miscellaneous Notes Phoned patient and given providers message below with verbalized understanding. Scheduled f/u appt. Left a message for pt to call the office and ask to speak to a nurse. Virginia Butts LPN Patient's routine appt was cancelled by us in December but never rescheduled. Needs seen. The following approved medication requests have been transmitted electronically. Requested Prescriptions Signed Prescriptions Disp Refills losartan (COZAAR) 25 mg tablet 90 tablet 0 Sig: Take 1 tablet by mouth once daily. Authorizing Provider: LISETTE ESCAMILLA MD Patient phones requesting refills as follows: Requested Prescriptions Pending Prescriptions Disp Refills losartan (COZAAR) 25 mg tablet 90 tablet 1 Sig: Take 1 tablet by mouth once daily. [place] 06/14/22 RR NOV no upcoming appt Please review and advise. Scott Shane documented in this encounter [facility] 01-20-2023 Note HNO ID: [id number] Author: Deanne Ovalle CNMT Service: Radiology Author Type: Technologist Type: Progress Notes Filed: 01/20/2023 8:53 AM Note Text: RADIOLOGY SERVICE PROGRESS NOTE SERVICE DATE: 01/20/2023 SERVICE TIME: 8:51 AM PATIENT IDENTITY VERIFICATION COMPLETED USING TWO (2) STANDARD IDENTIFIERS: Name and Date of confirmed by patient verbally and Name and Date of confirmed by identification band FALL SCREENING: Has the patient had 2 falls in the last year or 1 fall with injury or currently using an Ambulatory Assistive Device (Walker, Cane, Wheelchair, Crutches, etc.)? No PATIENT GENDER DATA: .female : No ALLERGIES: Reviewed and unchanged MEDICATIONS REVIEWED: Not applicable PATIENT RELEVANT IMPLANT DATA REVIEWED: Not Applicable CREATININE: Creatinine Date Value Ref Range Status 06/14/2022 0.77 0.58 - 0.96 mg/dL Final 09/20/2021 0.76 0.58 - 0.96 mg/dL Final Estimated Glomerular Filtration Rate Date Value Ref Range Status 06/14/2022 94 >=60 mL/min/1.73m? Final Comment: Estimated Glomerular Filtration Rate (eGFR) is calculated using the 2020 CKD-EPI creatinine equation. This equation utilizes serum creatinine, sex, and age as parameters. The creatinine assay has traceable calibration to isotope dilution-mass spectrometry. Refer to KDIGO guidelines for clinical interpretation. In patients with unstable renal function, e.g. those with acute kidney injury, the eGFR may not accurately reflect actual GFR. P.O.C.T. RESULTS: N/A January 20, [address] PERFORMED: No IV SITE: MI only - not applicable, oral or physician administered agents given to patient POST EXAM PIV STATUS: Not applicable PROCEDURE TYPE: NM INJECT: melanoma lymphoscintigraphy. 462 microcuries Tc99m SULFUR COLLOID . No other medications given.. ADMINISTRATION TIME: 8:40 PATIENT DISCHARGED TO: Ambulatory patient, left [place] department area. A Diagnostic radioactive procedure has taken place, with no further precautions necessary other than routine body substance precautions. More information regarding radiation safety can be found using this link: [email or web address] [email or web address] SIGNATURE: YANG Hudson PATIENT NAME: Reina Reilly DATE: January 20, 2023 TIME: 8:51 AM PAGER/CONTACT #: [facility] 01-20-2023 History of Presen t illness Narrative RADIOLOGY SERVICE PROGRESS NOTE SERVICE DATE: 01/20/2023 SERVICE TIME: 8:51 AM PATIENT IDENTITY VERIFICATION COMPLETED USING TWO (2) STANDARD IDENTIFIERS: Name and Date of confirmed by patient verbally and Name and Date of confirmed by identification band FALL SCREENING: Has the patient had 2 falls in the last year or 1 fall with injury or currently using an Ambulatory Assistive Device (Walker, Cane, Wheelchair, Crutches, etc.)? No PATIENT GENDER DATA: .female : No ALLERGIES: Reviewed and unchanged MEDICATIONS REVIEWED: Not applicable PATIENT RELEVANT IMPLANT DATA REVIEWED: Not Applicable CREATININE: Creatinine Date Value Ref Range Status 06/14/2022 0.77 0.58 - 0.96 mg/dL Final 09/20/2021 0.76 0.58 - 0.96 mg/dL Final Estimated Glomerular Filtration Rate Date Value Ref Range Status 06/14/2022 94 >=60 mL/min/1.73m Final Comment: Estimated Glomerular Filtration Rate (eGFR) is calculated using the 2020 CKD-EPI creatinine equation. This equation utilizes serum creatinine, sex, and age as parameters. The creatinine assay has traceable calibration to isotope dilution-mass spectrometry. Refer to KDIGO guidelines for clinical interpretation. In patients with unstable renal function, e.g. those with acute kidney injury, the eGFR may not accurately reflect actual GFR. P.O.C.T. RESULTS: N/A January 20, [address] PERFORMED: No IV SITE: NM only - not applicable, oral or physician administered agents given to patient POST EXAM PIV STATUS: Not applicable PROCEDURE TYPE: NM INJECT: melanoma lymphoscintigraphy. 462 microcuries Tc99m SULFUR COLLOID . No other medications given.. ADMINISTRATION TIME: 8:40 PATIENT DISCHARGED TO: Ambulatory patient, left [place] department area. A Diagnostic radioactive procedure has taken place, with no further precautions necessary other than routine body substance precautions. More information regarding radiation safety can be found using this link: [email or web address] SIGNATURE: YANG Hudson PATIENT NAME: Reina Reilly DATE: January 20, 2023 TIME: 8:51 AM PAGER/CONTACT #: documented in this encounter [facility] 09-21-2022 Note HNO ID: [id number] Author: Lori Ma LPN Service: ? Author Type: ? Type: Progress Notes Filed: 09/21/2022 9:19 PM Note Text: Scan on 09/21/2022 8:58 AM by External Provider, [place]: Mammography [facility] 08-03-2022 Miscellaneous Notes Spoke with pharmacy. Our records show 1 refill left. Pharmacist reports per pt's insurance they need a 90 day prescription. Patient has been identified by name and date of : Yes, Provider Dr. Escamilla Date 08/03/22 Time 11:22 am Pharmacy phones for refill(s): Requested Prescriptions Pending Prescriptions Disp Refills losartan (COZAAR) 25 mg tablet [Pharmacy Med Name: LOSARTAN POTASSIUM 25 MG TAB] 90 tablet 1 Sig: TAKE 1 TABLET BY MOUTH EVERY DAY Date of last office visit in primary care: 06/14/22 next apt 12/12/22 Last 2 Encounter Wt Readings: Date: Wt: 06/14/2022 73.5 kg (162 lb) 05/11/2022 70.6 kg (155 lb 9.6 oz) Previous labs/tests for medication: Blood Pressure: BUN (mg/dL) Date Value 06/14/2022 17 Sodium (mmol/L) Date Value 06/14/2022 137 Last 1 Encounter BP Readings: Date: BP: 06/14/2022 122/86 Thank you. Virginia Butts LPN documented in this encounter [facility] 07-11-2022 Miscellaneous Notes Patient has been identified by name and date of : Yes Requested Prescriptions Pending Prescriptions Disp Refills losartan (COZAAR) 25 mg tablet 30 tablet 1 Sig: Take 1 tablet by mouth once daily. RX INSTRUCTIONS: Patient aware RX will be sent to pharmacy. No need to notify patient. Patient last office visit: 06/14/22 Patient next office visit: 12/12/22 Tali Kwan MA documented in this encounter [facility] 06-16-2022 Miscellaneous Notes Spoke with pt and information listed below given. Pt verbalizes understanding. Virginia Butts LPN Left message for patient to contact office. Emely Oneill MA TC to patient with no answer. Left VM to return call to office to receive results. MONICA Flores Let patient know that all her labs are normal. Darcy Hogan PA-C documented in this encounter [facility] 06-14-2022 Note HNO ID: [id number] Author: Darcy Hogan PA-C Service: ? Author Type: Physician Director Of Digital Platforms Type: Progress Notes Filed: 06/14/2022 2:18 PM Note Text: Chief Complaint Patient presents with: Yearly Exam Immunizations: Flu vaccination HPI Reina Reilly is a 52 year old female who presents here today for physical. Patient with hx of HTN, Gerd and those as below. She denies specific concerns today. Recently started on losartan. Tolerating medication well. Home bp has been around 130/80s Last 5 Encounter Wt Readings: Date: Wt: 06/14/2022 73.5 kg (162 lb) 05/11/2022 70.6 kg (155 lb 9.6 oz) 05/09/2022 69.8 kg (153 lb 12.8 oz) 09/20/2021 67.6 kg (149 lb) 02/23/2021 68 kg (150 lb) Last 10 Encounter BP Readings: Date: BP: 06/14/2022 132/86 05/11/2022 161/107[HUBERT BP[ 05/09/2022 162/110 09/20/2021 138/100 02/23/2021 142/72 02/01/2021 124/78 01/21/2021 143/71 Past medical history, appointments, medications, allergies reviewed. Previous Medical History PAST MEDICAL HISTORY Diagnosis Date GERD with esophagitis 02/01/2018 LOS WITHIN PROCEDURE CODE Nausea 03/12/2020 Previous Surgical History PAST SURGICAL HISTORY Procedure Laterality Date COLONOSCOPY FLX DX W/COLLJ SPEC WHEN PFRMD 10/02/2020 ESOPHAGOGASTRODUODENOSCOPY TRANSORAL DIAGNOSTIC 03/27/2020 EGD LAPS SURG CHOLECYSTECTOMY W/CHOLANGIOGRAPHY 01/21/2021 Family History FAMILY HISTORY Problem Relation Age of Onset Colon Cancer Paternal Grandmother Coronary Artery Disease Paternal Grandmother 83 Stroke Paternal Grandfather Heart Mother valve replacement and valve repair Patient Allergies ALLERGIES No Known Allergies Current Medications Current Outpatient Medications on File Prior to Visit Medication Sig losartan (COZAAR) 25 mg tablet Take 1 tablet by mouth once daily. olopatadine (PATANOL) 0.1 % ophthalmic solution Use 1 Drop in the left eye twice daily. medroxyPROGESTERone (PROVERA, CYCRIN) 10 mg tablet dicyclomine (BENTYL) 10 mg capsule 10 mg. (Patient not taking: Reported on 05/09/2022) colestipol (COLESTID) 1 gram tablet Take 1 g by mouth twice daily. ondansetron orally disintegrating (ZOFRAN ODT) 4 mg disintegrating tablet Take 1 tablet by mouth every 6 hours as needed for nausea/vomiting. (Patient not taking: Reported on 05/09/2022) L.acid/L.casei/B.bif/B.woody/FOS (PROBIOTIC BLEND ORAL) Take by mouth. (Patient not taking: Reported on 09/20/2021 ) omeprazole (PRILOSEC) 20 mg capsule Take 1 capsule by mouth once daily. (Patient not taking: Reported on 09/20/2021 ) L. rhamnosus GG/inulin ([facility] ORAL) Take by mouth once daily. (Patient not taking: Reported on 09/20/2021 ) cholestyramine-sucrose (QUESTRAN) 4 gram powder Take 4 g by mouth twice daily with meals. (Patient not taking: Reported on 05/09/2022) MULTIVITAMIN ORAL Take by mouth once daily. sucralfate (CARAFATE) 1 gram tablet Take one tab at lunch and one at dinner (Patient not taking: Reported on 01/13/2021 ) No current facility-administered medications on file prior to visit. Social History Social History Tobacco Use Smoking status: Never Smokeless tobacco: Never Vaping Use Vaping Use: Never used Substance Use Topics Alcohol use: Yes Comment: seldom Drug use: No Review of Symptoms REVIEW OF SYSTEMS GENERAL: No weight loss, malaise or fevers HEENT: No changes in hearing or vision, no nose bleeds or other nasal problems NECK: Negative for lumps, goiter, pain and significant neck swelling RESPIRATORY: Negative for cough, hemoptysis, wheezing, COPD, dyspnea or shortness of breath CARDIOVASCULAR: Negative for chest pain, leg swelling, hypertension, CHF or palpitations GI: Negative for abdominal discomfort, blood in stools or black stools, change in bowel habit, heart burn, nausea, vomiting : No history of dysuria, frequency or incontinence MUSCULOSKELETAL: Negative for joint pain or swelling, back pain or muscle pain SKIN: Negative for lesions, rash, and itching PSYCH: Negative for sleep disturbance, mood disorder and recent psychosocial stressors HEMATOLOGY/LYMPHOLOGY: Negative for prolonged bleeding, bruising easily or swollen nodes ENDOCRINE: Negative for cold or heat intolerance, polyuria, polydipsia and goiter NEURO: No history of headaches, syncope, paralysis, seizures or tremors EXAM: BP 132/86 (BP Site: Left Arm, BP Position: Sitting, BP Cuff Size: Regular Adult) Pulse 82 Resp 16 Ht 167 cm (5' 5.75 ) Wt 73.5 kg (162 lb) LMP 06/06/2022 (Approximate) SpO2 98% BMI 26.35 kg/m? BP 122/86 Pulse 82 Resp 16 Ht 167 cm (5' 5.75 ) Wt 73.5 kg (162 lb) LMP 06/06/2022 (Approximate) SpO2 98% BMI 26.35 kg/m? General Appearance: Well appearing, alert, in no acute distress, well-hydrated, well nourished.. Head: Normocephalic, no masses, lesions, tenderness or abnormalities. Eyes: Anicteric sclera. Pupils are equally round (more content not included)... [facility] 06-14-2022 Instructions Darcy Hogan PA-C - 06/14/2022 1:25 PM EST Check with insurance on documented in this encounter [facility] 06-14-2022 History of Presen t illness Narrative Chief Complaint Patient presents with: Yearly Exam Immunizations: Flu vaccination HPI Reina Reilly is a 52 year old female who presents here today for physical. Patient with hx of HTN, Gerd and those as below. She denies specific concerns today. Recently started on losartan. Tolerating medication well. Home bp has been around 130/80s Last 5 Encounter Wt Readings: Date: Wt: 06/14/2022 73.5 kg (162 lb) 05/11/2022 70.6 kg (155 lb 9.6 oz) 05/09/2022 69.8 kg (153 lb 12.8 oz) 09/20/2021 67.6 kg (149 lb) 02/23/2021 68 kg (150 lb) Last 10 Encounter BP Readings: Date: BP: 06/14/2022 132/86 05/11/2022 161/107[HUBERT BP[ 05/09/2022 162/110 09/20/2021 138/100 02/23/2021 142/72 02/01/2021 124/78 01/21/2021 143/71 Past medical history, appointments, medications, allergies reviewed. Previous Medical History PAST MEDICAL HISTORY Diagnosis Date GERD with esophagitis 02/01/2018 LOS WITHIN PROCEDURE CODE Nausea 03/12/2020 Previous Surgical History PAST SURGICAL HISTORY Procedure Laterality Date COLONOSCOPY FLX DX W/COLLJ SPEC WHEN PFRMD 10/02/2020 ESOPHAGOGASTRODUODENOSCOPY TRANSORAL DIAGNOSTIC 03/27/2020 EGD LAPS SURG CHOLECYSTECTOMY W/CHOLANGIOGRAPHY 01/21/2021 Family History FAMILY HISTORY Problem Relation Age of Onset Colon Cancer Paternal Grandmother Coronary Artery Disease Paternal Grandmother 83 Stroke Paternal Grandfather Heart Mother valve replacement and valve repair Patient Allergies ALLERGIES No Known Allergies Current Medications Current Outpatient Medications on File Prior to Visit Medication Sig losartan (COZAAR) 25 mg tablet Take 1 tablet by mouth once daily. olopatadine (PATANOL) 0.1 % ophthalmic solution Use 1 Drop in the left eye twice daily. medroxyPROGESTERone (PROVERA, CYCRIN) 10 mg tablet dicyclomine (BENTYL) 10 mg capsule 10 mg. (Patient not taking: Reported on 05/09/2022) colestipol (COLESTID) 1 gram tablet Take 1 g by mouth twice daily. ondansetron orally disintegrating (ZOFRAN ODT) 4 mg disintegrating tablet Take 1 tablet by mouth every 6 hours as needed for nausea/vomiting. (Patient not taking: Reported on 05/09/2022) L.acid/L.casei/B.bif/B.woody/FOS (PROBIOTIC BLEND ORAL) Take by mouth. (Patient not taking: Reported on 09/20/2021 ) omeprazole (PRILOSEC) 20 mg capsule Take 1 capsule by mouth once daily. (Patient not taking: Reported on 09/20/2021 ) L. rhamnosus GG/inulin ([facility] ORAL) Take by mouth once daily. (Patient not taking: Reported on 09/20/2021 ) cholestyramine-sucrose (QUESTRAN) 4 gram powder Take 4 g by mouth twice daily with meals. (Patient not taking: Reported on 05/09/2022) MULTIVITAMIN ORAL Take by mouth once daily. sucralfate (CARAFATE) 1 gram tablet Take one tab at lunch and one at dinner (Patient not taking: Reported on 01/13/2021 ) No current facility-administered medications on file prior to visit. Social History Social History Tobacco Use Smoking status: Never Smokeless tobacco: Never Vaping Use Vaping Use: Never used Substance Use Topics Alcohol use: Yes Comment: seldom Drug use: No Review of Symptoms REVIEW OF SYSTEMS GENERAL: No weight loss, malaise or fevers HEENT: No changes in hearing or vision, no nose bleeds or other nasal problems NECK: Negative for lumps, goiter, pain and significant neck swelling RESPIRATORY: Negative for cough, hemoptysis, wheezing, COPD, dyspnea or shortness of breath CARDIOVASCULAR: Negative for chest pain, leg swelling, hypertension, CHF or palpitations GI: Negative for abdominal discomfort, blood in stools or black stools, change in bowel habit, heart burn, nausea, vomiting : No history of dysuria, frequency or incontinence MUSCULOSKELETAL: Negative for joint pain or swelling, back pain or muscle pain SKIN: Negative for lesions, rash, and itching PSYCH: Negative for sleep disturbance, mood disorder and recent psychosocial stressors HEMATOLOGY/LYMPHOLOGY: Negative for prolonged bleeding, bruising easily or swollen nodes ENDOCRINE: Negative for cold or heat intolerance, polyuria, polydipsia and goiter NEURO: No history of headaches, syncope, paralysis, seizures or tremors EXAM: BP 132/86 (BP Site: Left Arm, BP Position: Sitting, BP Cuff Size: Regular Adult) Pulse 82 Resp 16 Ht 167 cm (5' 5.75 ) Wt 73.5 kg (162 lb) LMP 06/06/2022 (Approximate) SpO2 98% BMI 26.35 kg/m BP 122/86 Pulse 82 Resp 16 Ht 167 cm (5' 5.75 ) Wt 73.5 kg (162 lb) LMP 06/06/2022 (Approximate) SpO2 98% BMI 26.35 kg/m General Appearance: Well appearing, alert, in no acute distress, well-hydrated, well nourished.. Head: Normocephalic, no masses, lesions, tenderness or abnormalities. Eyes: Anicteric sclera. Pupils are equally round and reactive to light. Extraocular movements are intact. . Ears: External ears normal, canals clear, TMs pearly dillard. Neck: Supple, no adenopathy; thyroid symmetric, normal size, no bruits. Lungs: Lungs clear to auscultation. No wheezing, rhonchi, rales.. Heart: RRR without murmur, gallop, or rubs. No ectopy. Abdomen: Normal abdominal exam, Abdomen soft, non-tender. Bowel sounds normal. No masses, organomegaly. Extremities: No deformities, edema, skin discoloration, clubbing or cyanosis. Good capillary refill. . Peripheral Pulses: Normal. Neurologic: Gait normal. Reflexes normal and symmetric. Sensation grossly intact.. Health Maintenance List HEPATITIS B(1 of 3 - 3-dose series) Never done HEPATITIS C SCREENING Never done HIV SCREENING Never done BP CONTROLLED (<130/80) Never done COVID-19 VACCINE(3 - Booster for Moderna series) due on 10/28/2020 SHINGRIX VACCINE(1 of 2) Never done LIPID SCREEN due on 06/25/2021 MAMMOGRAM due on 03/10/2022 DEPRESSION ASSESSMENT Never done ANNUAL PCP TEAM CHRONIC DISEASE VISIT due on 05/11/2023 DIABETES SCREEN due on 09/20/2024 HPV TESTING due on 09/26/2024 DTAP,TDAP,TD(2 - Td or Tdap) due on 06/14/2026 PAP TESTING due on 09/30/2026 COLORECTAL CANCER SCREENING due on 05/26/2031 INFLUENZA Discontinued Data reviewed N/a ASSESSMENT/PLAN: 1. Well adult exam - ICD9: V70.0, ICD10: Z00.00 (primary diagnosis) - Counseled on healthy diet and regular exercise - Calcium intake with supplements or by diet of 1000 mg/day for under 50, 9856-3427 mg/day for 50+ - Patient was counseled [id number] by myself (the billing provider) for the following immunizations and vaccine components, including side effects: COVID-19 and Influenza. Patient consents for immunization and understands risks and benefits. A VIS sheet on each immunization was given to the patient. 2. Hypertension, essential - ICD9: 401.9, ICD10: I10 - fair control - newly diagnosed - Continue current medication(s) - Encouraged dietary sodium restriction/DASH diet - Recommended regular aerobic exercise. - Recommend home blood pressure monitoring, to bring results in on next visit - Discussed need and benefit for weight loss. - Goal of BP <130/80 - COMP METABOLIC PANEL - URINALYSIS, WITH MICROSCOPIC 3. Encounter for screening for cardiovascular disorders - ICD9: V81.2, ICD10: Z13.6 - LIPID PANEL, NONFASTING 4. Encounter for screening for diabetes mellitus - ICD9: V77.1, ICD10: Z13.1 - HGB A1C 5. Gastroesophageal reflux disease with esophagitis without hemorrhage - ICD9: 530.81, 530.10, ICD10: K21.00 stable 6. Weight gain - ICD9: 783.1, ICD10: R63.5 check - TSH BLD 7. Encounter for immunization - ICD9: V03.89, ICD10: Z23 - PFIZER-BIONTECH COVID-19 BIVALENT BOOSTER VACCINE, AGE 12+ YR 8. Need for influenza vaccination - ICD9: V04.81, ICD10: Z23 - INFLUENZA VACCINE QUADRIVALENT 6 MO - 64 YRS IM Follow up in 6 months routine. Sooner prn. Darcy Hogan PA-C documented in this encounter [facility] 05-11-2022 Note HNO ID: [id number] Author: Jackie Torres APRN.MANAGER LOCATION Service: ? Author Type: Nurse Practitioner Type: Progress Notes Filed: 05/11/2022 11:22 AM Note Text: 05/11/2022 Patient presents with: Eye Crusting Left Eye: Woke up this AM with it crusted over, periorbital redness. Noted it draining yesterday, clear drainage. SUBJECTIVE: This is a 52 year old that is here today for Above Complaints. Has had URI symptoms for the last week. Given prednisone on 05/11/2022 through [facility] for sore throat. Negative strep. Declined COVID-19 and influenza testing at that time. Still with fatigue, cough, and sore throat. Yesterday developed some left eye itching and watering. This AM eye matted shut and has some upper eyelid swelling. Used some visine which did not seem to help and it burned. Denies fevers, chills, vision changes, eye pain, loss of taste/smell, purulent eye drainage, nasal congestion, rhinorrhea, headaches, muscle aches,SOB, dyspnea, wheezing, nausea or vomiting. BP elevated on arrival and appears it has been the last two visits prior to this one. She reports BP elevated at her recent GANTRY RIGGER appointment as well as when she checks at home. Home BP readings 150's/90-100's PAST MEDICAL HISTORY Diagnosis Date GERD with esophagitis 02/01/2018 LOS WITHIN PROCEDURE CODE Nausea 03/12/2020 ALLERGIES Patient has no known allergies. MEDICATIONS Current Outpatient Medications Medication Sig medroxyPROGESTERone (PROVERA, CYCRIN) 10 mg tablet predniSONE (DELTASONE) 20 mg tablet Take 2 tablets by mouth once daily for 5 days. colestipol (COLESTID) 1 gram tablet Take 1 g by mouth twice daily. MULTIVITAMIN ORAL Take by mouth once daily. dicyclomine (BENTYL) 10 mg capsule 10 mg. (Patient not taking: Reported on 05/09/2022) ondansetron orally disintegrating (ZOFRAN ODT) 4 mg disintegrating tablet Take 1 tablet by mouth every 6 hours as needed for nausea/vomiting. (Patient not taking: Reported on 05/09/2022) L.acid/L.casei/B.bif/B.woody/FOS (PROBIOTIC BLEND ORAL) Take by mouth. (Patient not taking: Reported on 09/20/2021 ) omeprazole (PRILOSEC) 20 mg capsule Take 1 capsule by mouth once daily. (Patient not taking: Reported on 09/20/2021 ) L. rhamnosus GG/inulin ([facility] ORAL) Take by mouth once daily. (Patient not taking: Reported on 09/20/2021 ) cholestyramine-sucrose (QUESTRAN) 4 gram powder Take 4 g by mouth twice daily with meals. (Patient not taking: Reported on 05/09/2022) sucralfate (CARAFATE) 1 gram tablet Take one tab at lunch and one at dinner (Patient not taking: Reported on 01/13/2021 ) No current facility-administered medications for this visit. Medications and allergies reviewed by this provider. SOCIAL HISTORY Social History Tobacco Use Smoking status: Never Smokeless tobacco: Never Vaping Use Vaping Use: Never used Substance Use Topics Alcohol use: Yes Comment: seldom Drug use: No REVIEW OF SYSTEMS All other reviewed and negative other than HPI. OBJECTIVE: BP 161/107 Pulse 97 Temp 37.9 ?C (100.3 ?F) Resp 16 Wt 70.6 kg (155 lb 9.6 oz) LMP 09/18/2021 (Exact Date) SpO2 96% BMI 25.11 kg/m? . Vital signs reviewed by this provider. APPEARANCE Well appearing, alert, in no acute distress, well-hydrated, well nourished. EYES left eye with mild swelling and erythema to upper eyelid. Mild erythema of sclera. No active drainage. Pupils are equally round and reactive to light. Extraocular movements are intact. EARS External ears normal, canals clear THROAT mild erythema NECK Supple, no adenopathy HEART RRR with normal S1 and S2, no murmurs, no gallops, no JVD appreciated LUNG clear to auscultation. No wheezes, rhonchi, or rales SKIN Skin color, texture, turgor normal, no suspicious rashes or lesions to exposed skin HEPATITIS B(1 of 3 - 3-dose series) Never done HEPATITIS C SCREENING Never done HIV SCREENING Never done COVID-19 VACCINE(3 - Booster for Moderna series) due on 10/28/2020 SHINGRIX VACCINE(1 of 2) Never done LIPID SCREEN due on 06/25/2021 MAMMOGRAM due on 03/10/2022 DEPRESSION ASSESSMENT Never done DIABETES SCREEN due on 09/20/2024 HPV TESTING due on 09/26/2024 DTAP,TDAP,TD(2 - Td or Tdap) due on 06/14/2026 PAP TESTING due on 09/30/2026 COLORECTAL CANCER SCREENING due on 05/26/2031 INFLUENZA Discontinued ASSESSMENT/PLAN: 1. Viral conjunctivitis - ICD9: 077.99, ICD10: B30.9 (primary diagnosis) Viral - see medication orders - no red flag symptoms - red flag symptoms discussed, verbalizes understanding - Instructed to call if high fever, development of periorbital redness or swelling, eye pain, visual changes, concerns or if symptoms persist. - may use warm compresses as needed for matting - OLOPATADINE 0.1 % EYE DROPS - follow-up if symptoms fail to improve, to ER with red flag symptoms 2. Symptoms of upper respiratory infection (URI) - ICD9: 786.09, ICD10: R09.89 - continue (more content not included)... [facility] 05-11-2022 Instructions Jackie Torres APRN.CNP - 05/11/2022 10:45 AM EST Monitor BP at home and bring readings to office visit. Call if becoming lightheadedness, dizziness of readings below 110/60 documented in this encounter [facility] 05-11-2022 History of Presen t illness Narrative 05/11/2022 Patient presents with: Eye Crusting Left Eye: Woke up this AM with it crusted over, periorbital redness. Noted it draining yesterday, clear drainage. SUBJECTIVE: This is a 52 year old that is here today for Above Complaints. Has had URI symptoms for the last week. Given prednisone on 05/11/2022 [facility] for sore throat. Negative strep. Declined COVID-19 and influenza testing at that time. Still with fatigue, cough, and sore throat. Yesterday developed some left eye itching and watering. This AM eye matted shut and has some upper eyelid swelling. Used some visine which did not seem to help and it burned. Denies fevers, chills, vision changes, eye pain, loss of taste/smell, purulent eye drainage, nasal congestion, rhinorrhea, headaches, muscle aches,SOB, dyspnea, wheezing, nausea or vomiting. BP elevated on arrival and appears it has been the last two visits prior to this one. She reports BP elevated at her recent [facility]TRY RIGGER appointment as well as when she checks at home. Home BP readings 150's/90-100's PAST MEDICAL HISTORY Diagnosis Date GERD with esophagitis 02/01/2018 LOS WITHIN PROCEDURE CODE Nausea 03/12/2020 ALLERGIES Patient has no known allergies. MEDICATIONS Current Outpatient Medications Medication Sig medroxyPROGESTERone (PROVERA, CYCRIN) 10 mg tablet predniSONE (DELTASONE) 20 mg tablet Take 2 tablets by mouth once daily for 5 days. colestipol (COLESTID) 1 gram tablet Take 1 g by mouth twice daily. MULTIVITAMIN ORAL Take by mouth once daily. dicyclomine (BENTYL) 10 mg capsule 10 mg. (Patient not taking: Reported on 05/09/2022) ondansetron orally disintegrating (ZOFRAN ODT) 4 mg disintegrating tablet Take 1 tablet by mouth every 6 hours as needed for nausea/vomiting. (Patient not taking: Reported on 05/09/2022) L.acid/L.casei/B.bif/B.woody/FOS (PROBIOTIC BLEND ORAL) Take by mouth. (Patient not taking: Reported on 09/20/2021 ) omeprazole (PRILOSEC) 20 mg capsule Take 1 capsule by mouth once daily. (Patient not taking: Reported on 09/20/2021 ) L. rhamnosus GG/inulin ([facility] ORAL) Take by mouth once daily. (Patient not taking: Reported on 09/20/2021 ) cholestyramine-sucrose (QUESTRAN) 4 gram powder Take 4 g by mouth twice daily with meals. (Patient not taking: Reported on 05/09/2022) sucralfate (CARAFATE) 1 gram tablet Take one tab at lunch and one at dinner (Patient not taking: Reported on 01/13/2021 ) No current facility-administered medications for this visit. Medications and allergies reviewed by this provider. SOCIAL HISTORY Social History Tobacco Use Smoking status: Never Smokeless tobacco: Never Vaping Use Vaping Use: Never used Substance Use Topics Alcohol use: Yes Comment: seldom Drug use: No REVIEW OF SYSTEMS All other reviewed and negative other than HPI. OBJECTIVE: BP 161/107 Pulse 97 Temp 37.9 C (100.3 F) Resp 16 Wt 70.6 kg (155 lb 9.6 oz) LMP 09/18/2021 (Exact Date) SpO2 96% BMI 25.11 kg/m . Vital signs reviewed by this provider. APPEARANCE Well appearing, alert, in no acute distress, well-hydrated, well nourished. EYES left eye with mild swelling and erythema to upper eyelid. Mild erythema of sclera. No active drainage. Pupils are equally round and reactive to light. Extraocular movements are intact. EARS External ears normal, canals clear THROAT mild erythema NECK Supple, no adenopathy HEART RRR with normal S1 and S2, no murmurs, no gallops, no JVD appreciated LUNG clear to auscultation. No wheezes, rhonchi, or rales SKIN Skin color, texture, turgor normal, no suspicious rashes or lesions to exposed skin HEPATITIS B(1 of 3 - 3-dose series) Never done HEPATITIS C SCREENING Never done HIV SCREENING Never done COVID-19 VACCINE(3 - Booster for Moderna series) due on 10/28/2020 SHINGRIX VACCINE(1 of 2) Never done LIPID SCREEN due on 06/25/2021 MAMMOGRAM due on 03/10/2022 DEPRESSION ASSESSMENT Never done DIABETES SCREEN due on 09/20/2024 HPV TESTING due on 09/26/2024 DTAP,TDAP,TD(2 - Td or Tdap) due on 06/14/2026 PAP TESTING due on 09/30/2026 COLORECTAL CANCER SCREENING due on 05/26/2031 INFLUENZA Discontinued ASSESSMENT/PLAN: 1. Viral conjunctivitis - ICD9: 077.99, ICD10: B30.9 (primary diagnosis) Viral - see medication orders - no red flag symptoms - red flag symptoms discussed, verbalizes understanding - Instructed to call if high fever, development of periorbital redness or swelling, eye pain, visual changes, concerns or if symptoms persist. - may use warm compresses as needed for matting - OLOPATADINE 0.1 % EYE DROPS - follow-up if symptoms fail to improve, to ER with red flag symptoms 2. Symptoms of upper respiratory infection (URI) - ICD9: 786.09, ICD10: R09.89 - continue OTC supportive care with cough and cold medications - no red flag symptoms or exam findings - red flag symptoms discussed, verbalizes understanding - discussed COVID-19 and influenza testing, patient declined given the longevity of her symptoms - follow-up if symptoms fail to improve to ER with red flag symptoms 3. Hypertension, unspecified type - ICD9: 401.9, ICD10: I10 - newly diagnosed - Begin losartan(Cozaar) - Encouraged dietary sodium restriction/DASH diet - Recommended regular aerobic exercise. - Recommend home blood pressure monitoring, to bring results in on next visit - Follow up in 1 month for BP recheck. - Goal of BP <140/90 - Recommend home or pharmacy blood pressure monitoring - Recommended no refined sugar, low refined starch, healthy oil intake (olive oil), healthy protein (fish) along the lines of the Mediterranean diet. - LOSARTAN 25 MG TABLET Jackie Torres APRN.CNP Prescription instructions reviewed with patient as applicable. Patient advised if symptoms do not improve or if symptoms worsen sooner, to contact their primary care physician. Potential red flag symptoms discussed with the patient. Reviewed appropriate action plan to take if red flag symptoms occur. Patient agreeable to treatment plan. I spent a total of 30 minutes on the date of the service which included preparing to see the patient, [id number] patient care, completing clinical documentation, obtaining and/or reviewing separately obtained history, performing a medically appropriate examination, counseling and educating the patient/family/caregiver, and ordering medications, tests, or procedures. documented in this encounter [facility] 05-09-2022 Note HNO ID: [id number] Author: Herb Shaffer APRN.CINTHIA Service: ? Author Type: Nurse Practitioner Type: Progress Notes Filed: 05/09/2022 10:49 AM Note Text: Subjective HPI HPI Reina Reilly is a 52 year old female who presents today for CC of st, cough, congestion. This started 4 days ago. Has tried otc medication for relief. Symptoms are worsened by nothing. Risk factors no known sick exposure. Nonsmoker. .Patient presents with: Sore Throat: Cough x 4 days PAST MEDICAL HISTORY Diagnosis Date GERD with esophagitis 02/01/2018 LOS WITHIN PROCEDURE CODE Nausea 03/12/2020 PAST SURGICAL HISTORY Procedure Laterality Date COLONOSCOPY FLX DX W/COLLJ SPEC WHEN PFRMD 10/02/2020 ESOPHAGOGASTRODUODENOSCOPY TRANSORAL DIAGNOSTIC 03/27/2020 EGD LAPS SURG CHOLECYSTECTOMY W/CHOLANGIOGRAPHY 01/21/2021 ALLERGIES Patient has no known allergies. MEDICATIONS medroxyPROGESTERone (PROVERA, CYCRIN) 10 mg tablet colestipol (COLESTID) 1 gram tablet Take 1 g by mouth twice daily. MULTIVITAMIN ORAL Take by mouth once daily. predniSONE (DELTASONE) 20 mg tablet Take 2 tablets by mouth once daily for 5 days. dicyclomine (BENTYL) 10 mg capsule 10 mg. (Patient not taking: Reported on 05/09/2022) ondansetron orally disintegrating (ZOFRAN ODT) 4 mg disintegrating tablet Take 1 tablet by mouth every 6 hours as needed for nausea/vomiting. (Patient not taking: Reported on 05/09/2022) L.acid/L.casei/B.bif/B.woody/FOS (PROBIOTIC BLEND ORAL) Take by mouth. (Patient not taking: Reported on 09/20/2021 ) omeprazole (PRILOSEC) 20 mg capsule Take 1 capsule by mouth once daily. (Patient not taking: Reported on 09/20/2021 ) L. rhamnosus GG/inulin ([facility] ORAL) Take by mouth once daily. (Patient not taking: Reported on 09/20/2021 ) cholestyramine-sucrose (QUESTRAN) 4 gram powder Take 4 g by mouth twice daily with meals. (Patient not taking: Reported on 05/09/2022) sucralfate (CARAFATE) 1 gram tablet Take one tab at lunch and one at dinner (Patient not taking: Reported on 01/13/2021 ) FAMILY HISTORY Problem Relation Age of Onset Colon Cancer Paternal Grandmother Coronary Artery Disease Paternal Grandmother 83 Stroke Paternal Grandfather Heart Mother valve replacement and valve repair Social History Tobacco Use Smoking status: Never Smokeless tobacco: Never Vaping Use Vaping Use: Never used Substance Use Topics Alcohol use: Yes Comment: seldom Drug use: No Review of Systems Constitutional: Negative for fever. HENT: Positive for congestion and sore throat. Negative for ear pain and nosebleeds. Respiratory: Positive for cough. Negative for shortness of breath and wheezing. Cardiovascular: Negative for chest pain. Skin: Negative for itching and rash. Objective Physical Exam Constitutional: General: She is not in acute distress. Appearance: She is not toxic-appearing or diaphoretic. HENT: Head: Normocephalic and atraumatic. Nose: Nose normal. Mouth/Throat: Pharynx: Uvula midline. Posterior oropharyngeal erythema present. No pharyngeal swelling, oropharyngeal exudate or uvula swelling. Comments: Hoarse voice. Eyes: General: Lids are normal. No scleral icterus. Right eye: No discharge. Left eye: No discharge. Conjunctiva/sclera: Conjunctivae normal. Pupils: Pupils are equal, round, and reactive to light. Neck: Trachea: Trachea normal. Cardiovascular: Rate and Rhythm: Normal rate and regular rhythm. Heart sounds: Normal heart sounds. Pulmonary: Effort: Pulmonary effort is normal. Breath sounds: Normal breath sounds. Musculoskeletal: Cervical back: Normal range of motion and neck supple. Lymphadenopathy: Cervical: No cervical adenopathy. Right cervical: No superficial cervical adenopathy. Left cervical: No superficial cervical adenopathy. Skin: Findings: No rash. Neurological: Mental Status: She is alert and oriented to person, place, and time. ASSESSMENT/PLAN: 1. URI, acute - ICD9: 465.9, ICD10: J06.9 (primary diagnosis) - Discussed viral etiology and rationale for treatment. - Symptomatic treatment with prn analgesia - Supportive care with fluids and rest - Follow up in 3-5 days if symptoms persist or sooner if worsening of symptoms -declines covid testing. - PREDNISONE 20 MG TABLET 2. Sore throat - ICD9: 462, ICD10: J02.9 Neg, as above. - STREP A MOLECULAR (POC) - PREDNISONE 20 MG TABLET Herb Shaffer APRN.[facility] 05-09-2022 History of Presen t illness Narrative Subjective HPI HPI Reina Reilly is a 52 year old female who presents today for CC of st, cough, congestion. This started 4 days ago. Has tried otc medication for relief. Symptoms are worsened by nothing. Risk factors no known sick exposure. Nonsmoker. .Patient presents with: Sore Throat: Cough x 4 days PAST MEDICAL HISTORY Diagnosis Date GERD with esophagitis 02/01/2018 LOS WITHIN PROCEDURE CODE Nausea 03/12/2020 PAST SURGICAL HISTORY Procedure Laterality Date COLONOSCOPY FLX DX W/COLLJ SPEC WHEN PFRMD 10/02/2020 ESOPHAGOGASTRODUODENOSCOPY TRANSORAL DIAGNOSTIC 03/27/2020 EGD LAPS SURG CHOLECYSTECTOMY W/CHOLANGIOGRAPHY 01/21/2021 ALLERGIES Patient has no known allergies. MEDICATIONS medroxyPROGESTERone (PROVERA, CYCRIN) 10 mg tablet colestipol (COLESTID) 1 gram tablet Take 1 g by mouth twice daily. MULTIVITAMIN ORAL Take by mouth once daily. predniSONE (DELTASONE) 20 mg tablet Take 2 tablets by mouth once daily for 5 days. dicyclomine (BENTYL) 10 mg capsule 10 mg. (Patient not taking: Reported on 05/09/2022) ondansetron orally disintegrating (ZOFRAN ODT) 4 mg disintegrating tablet Take 1 tablet by mouth every 6 hours as needed for nausea/vomiting. (Patient not taking: Reported on 05/09/2022) L.acid/L.casei/B.bif/B.woody/FOS (PROBIOTIC BLEND ORAL) Take by mouth. (Patient not taking: Reported on 09/20/2021 ) omeprazole (PRILOSEC) 20 mg capsule Take 1 capsule by mouth once daily. (Patient not taking: Reported on 09/20/2021 ) L. rhamnosus GG/inulin ([facility] ORAL) Take by mouth once daily. (Patient not taking: Reported on 09/20/2021 ) cholestyramine-sucrose (QUESTRAN) 4 gram powder Take 4 g by mouth twice daily with meals. (Patient not taking: Reported on 05/09/2022) sucralfate (CARAFATE) 1 gram tablet Take one tab at lunch and one at dinner (Patient not taking: Reported on 01/13/2021 ) FAMILY HISTORY Problem Relation Age of Onset Colon Cancer Paternal Grandmother Coronary Artery Disease Paternal Grandmother 83 Stroke Paternal Grandfather Heart Mother valve replacement and valve repair Social History Tobacco Use Smoking status: Never Smokeless tobacco: Never Vaping Use Vaping Use: Never used Substance Use Topics Alcohol use: Yes Comment: seldom Drug use: No Review of Systems Constitutional: Negative for fever. HENT: Positive for congestion and sore throat. Negative for ear pain and nosebleeds. Respiratory: Positive for cough. Negative for shortness of breath and wheezing. Cardiovascular: Negative for chest pain. Skin: Negative for itching and rash. Objective Physical Exam Constitutional: General: She is not in acute distress. Appearance: She is not toxic-appearing or diaphoretic. HENT: Head: Normocephalic and atraumatic. Nose: Nose normal. Mouth/Throat: Pharynx: Uvula midline. Posterior oropharyngeal erythema present. No pharyngeal swelling, oropharyngeal exudate or uvula swelling. Comments: Hoarse voice. Eyes: General: Lids are normal. No scleral icterus. Right eye: No discharge. Left eye: No discharge. Conjunctiva/sclera: Conjunctivae normal. Pupils: Pupils are equal, round, and reactive to light. Neck: Trachea: Trachea normal. Cardiovascular: Rate and Rhythm: Normal rate and regular rhythm. Heart sounds: Normal heart sounds. Pulmonary: Effort: Pulmonary effort is normal. Breath sounds: Normal breath sounds. Musculoskeletal: Cervical back: Normal range of motion and neck supple. Lymphadenopathy: Cervical: No cervical adenopathy. Right cervical: No superficial cervical adenopathy. Left cervical: No superficial cervical adenopathy. Skin: Findings: No rash. Neurological: Mental Status: She is alert and oriented to person, place, and time. ASSESSMENT/PLAN: 1. URI, acute - ICD9: 465.9, ICD10: J06.9 (primary diagnosis) - Discussed viral etiology and rationale for treatment. - Symptomatic treatment with prn analgesia - Supportive care with fluids and rest - Follow up in 3-5 days if symptoms persist or sooner if worsening of symptoms -declines covid testing. - PREDNISONE 20 MG TABLET 2. Sore throat - ICD9: 462, ICD10: J02.9 Neg, as above. - STREP A MOLECULAR (POC) - PREDNISONE 20 MG TABLET Herb Shaffer APRN.MANAGER LOCATION documented in this encounter [facility] 11-11-2021 History of Presen t illness Narrative FYI pt had EGD completed. Lori Ma LPN Scan on 11/11/2021 12:28 PM by External Provider: EGD Scan on 11/11/2021 12:33 PM by External Provider: Letters documented in this encounter [facility] 09-21-2021 Miscellaneous Notes Patient was notified Tami Hammer Ma Let patient know that she is positive for covid. I recommend symptomatic tx. Her bloodwork was okay. Thanks. Darcy Hogan PA-C documented in this encounter [facility] 09-20-2021 History of Presen t illness Narrative 09/20/2021 Patient presents with: Diarrhea SUBJECTIVE: This is a 51 year old that is here today for Acute onset of diarrhea.. Patient has had diarrhea since yesterday morning. No fevers. No vomiting. No blood. No URI symptoms Denies cough or congestion. Denies urinary symptoms. Did have h/a yesterday. Has been able to tolerate liquids. Had some crackers this morning. PAST MEDICAL HISTORY Diagnosis Date GERD with esophagitis 02/01/2018 LOS WITHIN PROCEDURE CODE Nausea 03/12/2020 ALLERGIES Patient has no known allergies. MEDICATIONS Current Outpatient Medications Medication Sig dicyclomine (BENTYL) 10 mg capsule 10 mg. colestipol (COLESTID) 1 gram tablet Take 1 g by mouth twice daily. cholestyramine-sucrose (QUESTRAN) 4 gram powder Take 4 g by mouth twice daily with meals. MULTIVITAMIN ORAL Take by mouth once daily. L.acid/L.casei/B.bif/B.woody/FOS (PROBIOTIC BLEND ORAL) Take by mouth. (Patient not taking: Reported on 09/20/2021 ) omeprazole (PRILOSEC) 20 mg capsule Take 1 capsule by mouth once daily. (Patient not taking: Reported on 09/20/2021 ) L. rhamnosus GG/inulin ([facility] ORAL) Take by mouth once daily. (Patient not taking: Reported on 09/20/2021 ) sucralfate (CARAFATE) 1 gram tablet Take one tab at lunch and one at dinner (Patient not taking: Reported on 01/13/2021 ) No current facility-administered medications for this visit. SOCIAL HISTORY Social History Tobacco Use Smoking status: Never Smoker Smokeless tobacco: Never Used Vaping Use Vaping Use: Never used Substance Use Topics Alcohol use: Yes Comment: seldom Drug use: No REVIEW OF SYSTEMS All other reviewed and negative other than HPI. OBJECTIVE: BP 138/100 (BP Site: Left Arm, BP Position: Sitting, BP Cuff Size: Regular Adult) Pulse 68 Temp 37 C (98.6 F) Resp 18 Wt 67.6 kg (149 lb) LMP 09/18/2021 (Exact Date) BMI 24.05 kg/m APPEARANCE Well appearing, alert, in no acute distress, well-hydrated, well nourished. NECK Supple, no adenopathy; thyroid symmetric, normal size, no bruits HEART RRR with normal S1 and S2, no murmurs, no gallops, no JVD appreciated LUNG clear to auscultation ABDOMEN bowel sounds normoactive, no bruits, soft, non-distended. Generalized tenderness throughout. ASSESSMENT/PLAN: 1. Diarrhea, unspecified type - ICD9: 787.91, ICD10: R19.7 (primary diagnosis) Symptom care Push fluids zofran prn. Check labs and covid/flu - CBC + DIFF - COMP METABOLIC PANEL - COVID WITH FLUA+B, ROUTINE 2. Viral gastroenteritis - ICD9: 008.8, ICD10: A08.4 As above. - CBC + DIFF - COMP METABOLIC PANEL - COVID WITH FLUA+B, ROUTINE Darcy Hogan PA-C documented in this encounter [facility] 09-20-2021 Miscellaneous Notes Protocol recommends be seen in 24 hours. Pt scheduled with provider 09/20/21 at 1100 am. Care plan reviewed with patient. Patient voices understanding. Advised patient that if symptoms get worse to be evaluated in Urgent Care or ER. Reason for Disposition [1] MODERATE diarrhea (e.g., 4-6 times / day more than normal) AND [2] present > 48 hours (2 days) Answer Assessment - Initial Assessment Questions 1. DIARRHEA SEVERITY: - MILD (SCALE 1-3): Few loose or mushy BMs; increase of 1-3 stools over normal daily number of stools; mild increase in ostomy output. - MODERATE (SCALE 4-7): Increase of 4-6 stools daily over normal; moderate increase in ostomy output. * SEVERE (SCALE 8-10; OR 'WORST POSSIBLE'): Increase of 7 or more stools daily over normal; moderate increase in ostomy output; incontinence. Pt reports 6 stools in last 24 hours. 2. ONSET: Diarrhea began yesterday around late morning. 3. BM CONSISTENCY: Pt reports it's very watery. 4. VOMITING: Pt denies. 5. ABDOMINAL PAIN: Pt reports abdominal pain. Pt reports it feels like dull, ache, intermittent. 6. ABDOMINAL PAIN SEVERITY: - MILD (1-3): doesn't interfere with normal activities, abdomen soft and not tender to touch - MODERATE (4-7): interferes with normal activities or awakens from sleep, tender to touch - SEVERE (8-10): excruciating pain, doubled over, unable to do any normal activities Pt rates the pain at a 4-5/10. Pt reports she felt like she slept, woke up a couple times to go to the bathroom right away. Her abdomen is tender to the touch. 7. ORAL INTAKE: Pt denies vomiting. Reports she has had Gatorade 20 oz. 8. HYDRATION: Pt denies, dry mouth [not just dry lips], too weak to stand, dizziness, new weight loss. Last urinated this morning at 800 am. 9. EXPOSURE: Pt denies traveling to a foreign country recently. Pt denies exposure to anyone with diarrhea. Pt denies eating any food that was spoiled. 10. ANTIBIOTIC USE: Pt denies. 11. OTHER SYMPTOMS: Pt reports headaches. Pt states they just found she has ulcers in her stomach and they put her on Sucralfate, has been done for over a week now. Was on it for 2 months. 12. : Pt denies she reports she is on her period right now. Protocols used: [id number] documented in this encounter [facility] Diagnosis Encounter for screening mammogram for breast cancer [facility] Diagnosis URI, acute- Primary Acute upper respiratory infections of unspecified site Sore throat Acute pharyngitis [facility]* Diagnosis Viral conjunctivitis- Primary Unspecified diseases of conjunctiva due to viruses Symptoms of upper respiratory infection (URI) Hypertension, unspecified type documented in this encounter [facility] note* Diagnosis Well adult exam- Primary Routine general medical examination at a health care facility Hypertension, essential Unspecified essential hypertension Encounter for screening for cardiovascular disorders Screening for other and unspecified cardiovascular conditions Encounter for screening for diabetes mellitus Screening for diabetes mellitus Gastroesophageal reflux disease with esophagitis without hemorrhage Weight gain Abnormal weight gain Encounter for immunization Need for other specified prophylactic vaccination against single bacterial disease Need for influenza vaccination Need for prophylactic vaccination and inoculation against influenza [facility] Diagnosis Hypertension, unspecified type documented in this encounter [facility] note* Diagnosis Malignant melanoma (HCC) Melanoma of skin, site unspecified [facility] Diagnosis Hypertension, unspecified type documented in this encounter [facility] note* Diagnosis Hypertension, essential- Primary Unspecified essential hypertension Malignant melanoma of right lower leg (HCC) Gastroesophageal reflux disease with esophagitis without hemorrhage Loose stools Abnormal feces Encounter for immunization Need for other specified prophylactic vaccination against single bacterial disease Encounter for screening for diabetes mellitus Screening for diabetes mellitus documented in this encounter [facility] for referral (narrative)* Diagnostic Procedure Only (Routine) - Pending Review Specialty Diagnoses / Procedures Referred By Dov reyes Referred To Contact [facility] Diagnoses Encounter for screening mammogram for breast cancer Procedures LETY SCREENING W JEANNIE SCREENING DIGITAL BREAST TOMOSYNTHESIS BI SCREENING MAMMOGRAPHY BI 2-VIEW BREAST INC CAD Lisette Escamilla MD [address] [place] [address] [facility] [address] [place] [address] Referral ID Status Reason Start Date Expiration Date Visits Requested Visits Authorized [id number] Pending Review Auto-Generat ed Referral 04/14/2022 05/14/2023 1 1 [facility] Advance Directives No Advanced Directives Records FoundDocuments on File Type Date Recorded Patient Slot Tag Inserter Expl anation Advance Directive(s) 01/21/2021 9:12 AM Advance Directive(s) 10/02/2020 9:28 AM Advance Directive(s) 03/27/2020 9:25 AM Health Concerns Infection Onset Date Last Indicated Resolved Time COVID-19 Confirmed 09/20/2021 09/20/2021 Summary Purpose Family History No Family History Records FoundNo Family History Records FoundNo Family History Records FoundNo Family History Records Found Reason for Referral Specialty Diagnoses / Procedures Referred By Contac t Referred To Contact Radiology Diagnoses Malignant melanoma (HCC) Procedures NM lymphoscintigram Pedro Lora MD [address] [place] [address] Referral ID Status Reason Start Date Expiration Date Visits Re quested Visits Authorized [id number] Closed 02/24/2023 08/23/2023 1 1 Specialty Diagnoses / Procedures Referred By Contac t Referred To Contact Oncology Diagnoses Malignant melanoma of right lower leg (HCC) Procedures CONSULT TO ONCOLOGY OFFICE/OUTPATIENT [facility] MDM 60-74 MINUTES Lisette Escamilla MD [address] [place] [address] Referral ID Status Reason Start Date Expiration Date Visits Requested Visits Authorized [id number] Authorized PCP Requested Referral 04/12/2023 04/11/2024 1 1 Additional Source Comments Source Comments (unrecognize d section and content) In the event this informatio n is protected by the Federal Confidentiality of Alcohol and Drug Abuse Patient Records regulations: The Federal rules restrict any use of the information to criminally investigate or prosecute any alcohol or drug abuse patient.[facility] the event this information is protected by the Federal Confidentiality of Alcohol and Drug Abuse Patient Records regulations: The Federal rules restrict any use of the information to criminally investigate or prosecute any alcohol or drug abuse patient.[facility] the event this information is protected by the Federal Confidentiality of Alcohol and Drug Abuse Patient Records regulations: The Federal rules restrict any use of the information to criminally investigate or prosecute any alcohol or drug abuse patient.[facility] the event this information is protected by the Federal Confidentiality of Alcohol and Drug Abuse Patient Records regulations: The Federal rules restrict any use of the information to criminally investigate or prosecute any alcohol or drug abuse patient.[facility] the event this information is protected by the Federal Confidentiality of Alcohol and Drug Abuse Patient Records regulations: The Federal rules restrict any use of the information to criminally investigate or prosecute any alcohol or drug abuse patient.[facility] the event this information is protected by the Federal Confidentiality of Alcohol and Drug Abuse Patient Records regulations: The Federal rules restrict any use of the information to criminally investigate or prosecute any alcohol or drug abuse patient.[facility] the event this information is protected by the Federal Confidentiality of Alcohol and Drug Abuse Patient Records regulations: The Federal rules restrict any use of the information to criminally investigate or prosecute any alcohol or drug abuse patient.[facility] the event this information is protected by the Federal Confidentiality of Alcohol and Drug Abuse Patient Records regulations: The Federal rules restrict any use of the information to criminally investigate or prosecute any alcohol or drug abuse patient.[facility] the event this information is protected by the Federal Confidentiality of Alcohol and Drug Abuse Patient Records regulations: The Federal rules restrict any use of the information to criminally investigate or prosecute any alcohol or drug abuse patient.[facility] the event this information is protected by the Federal Confidentiality of Alcohol and Drug Abuse Patient Records regulations: The Federal rules restrict any use of the information to criminally investigate or prosecute any alcohol or drug abuse patient.[facility] the event this information is protected by the Federal Confidentiality of Alcohol and Drug Abuse Patient Records regulations: The Federal rules restrict any use of the information to criminally investigate or prosecute any alcohol or drug abuse patient.[facility] the event this information is protected by the Federal Confidentiality of Alcohol and Drug Abuse Patient Records regulations: The Federal rules restrict any use of the information to criminally investigate or prosecute any alcohol or drug abuse patient.[facility] the event this information is protected by the Federal Confidentiality of Alcohol and Drug Abuse Patient Records regulations: The Federal rules restrict any use of the information to criminally investigate or prosecute any alcohol or drug abuse patient.[facility] the event this information is protected by the Federal Confidentiality of Alcohol and Drug Abuse Patient Records regulations: The Federal rules restrict any use of the information to criminally investigate or prosecute any alcohol or drug abuse patient.[facility] the event this information is protected by the Federal Confidentiality of Alcohol and Drug Abuse Patient Records regulations: The Federal rules restrict any use of the information to criminally investigate or prosecute any alcohol or drug abuse patient.[facility] the event this information is protected by the Federal Confidentiality of Alcohol and Drug Abuse Patient Records regulations: The Federal rules restrict any use of the information to criminally investigate or prosecute any alcohol or drug abuse patient.[facility] Reason for Visit (unrecogniz ed section and content) Reason Comments Results Reason Comments Outside EGD Reason Comments Sore Throat Cough x 4 days Reason Comments Eye Crusting Left Eye Woke up this AM wi th it crusted over, periorbital redness. Noted it draining yesterday, clear drainage. Reason Onset Date Comments Yearly Exam Immunizations 06/14/2022 Flu vaccination Reason Onset Date Comments Refill Request 07/10/2022 Reason Comments Refill Request Specialty Diagnoses / Procedures Referred By Contyana t Referred To Contact Radiology Diagnoses Malignant melanoma (HCC) Procedures NM lymphoscintigram Pedro Lora MD [address] [place] [address] Referral ID Status Reason Start Date Expiration Date Visits Re quested Visits Authorized [id number] Closed 02/24/2023 08/23/2023 1 1 Reason Onset Date Comments Refill Request 03/13/2023 Reason Comments Follow Up Reason Comments fax appt. Care Teams (unrecognized sec tion and content) Commissary Manager Relationship Specialty Start Date End Date Lisette Escamilla MD [facility] [place] [address] PCP - General Family Practice 11/05/15 Commissary Manager Relationship Specialty Start Date End Date Lisette Escamilla MD [address] [place] [address] [place] [address] PCP - General Family Practice 11/05/15 Commissary Manager Relationship Specialty Start Date End Date Lisette Escamilla MD [address] [place] [id number] PCP - General Family Practice 11/05/15 Commissary Manager Relationship Specialty Start Date End Date Lisette Escamilla MD [address] [place] [address] [place] [address] PCP - General Family Medicine 11/05/15 Commissary Manager Relationship Specialty Start Date End Date Lisette Escamilla MD [address] [place] [address] [place] [address] PCP - General Family Medicine 11/05/15 Commissary Manager Relationship Specialty Start Date End Date Lisette Escamilla MD [address] [place] [address] [place] [address] PCP - General Family Medicine 11/05/15 Commissary Manager Relationship Specialty Start Date End Date Lisette Escamilla MD [address] [place] [address] [place] [address] PCP - General Family Medicine 11/05/15 Commissary Manager Relationship Specialty Start Date End Date Lisette Escamilla MD [address] [place] [address] [place] [address] PCP - General Family Medicine 11/05/15 Commissary Manager Relationship Specialty Start Date End Date Lisette Escamilla MD [address] [place], [place] [address] PCP - General Family Medicine 11/05/15 Commissary Manager Relationship Specialty Start Date End Date [facility] [address] [place] [address] PCP - General 02/28/23 Commissary Manager Relationship Specialty Start Date End Date Lisette Escamilla MD [address] [place], [place] [id number] PCP - General Family Medicine 11/05/15 Commissary Manager Relationship Specialty Start Date End Date Lisette Escamilla MD [address] [place], [place] [id number] PCP - General Family Medicine 11/05/15 Commissary Manager Relationship Specialty Start Date End Date Lisette Escamilla MD [address] [place], [place] [address] PCP - General Family Medicine 11/05/15 INFORMATION SOURCE (unrecogn ized section and content) DATE CREATED AUTHOR AUTHOR'S ORGANIZ ATION 03/01/2023 [facility] DATE CREATED AUTHOR AUTHOR'S ORGANIZ ATION 04/16/2023 [facility] DATE CREATED AUTHOR AUTHOR'S ORGANIZ ATION 04/28/2023 [facility] FOR RECORDS PERTAINING TO PATIENTS WHO ARE OR HAVE BEEN ENROLLED IN A CHEMICAL DEPENDENCY/SUBSTANCEABUSE PROGRAM, SOME INFORMATION MAY BE OMITTED. This clinical summary was aggregated from multiple sources. Caution should be exercised in using it in the provision of clinical care. This summary normalizes information from multiple sources, and as a consequence, information in this document may materially change the coding, format and clinical context of patient data. In addition, data may be omitted in some cases. CLINICAL DECISIONS SHOULD BE BASED ON THE PRIMARY CLINICAL RECORDS. [employer] provides no warranty or guarantee of the accuracy or completeness of information in this document.
[2023-05-10 06:27] LABS: Internal QC Validated? YES +Cl - CLEAR BKGD; Pregnancy, Urine Negative Negative
[2023-05-10 06:40] VITALS: BP 136/98; PULSE 83; RESP 16; TEMP 36.4; O2SAT 100; BMI 27.7
[2023-05-10] MEDS: Lactated Ringers 1,000 ML 15 ML IV (06:43)
--- NOTE | 2023-05-10 07:00 | EGD_PTH ---
PATHOLOGY RESULTS PATIENT: REINA BOSS LOC: EN U#:[id number] AGE/SX: 53/F ROOM: RE05/10/[address]: Dr. Paul Trevino DO : 1970 BED: DIS: 05/10/2023 SPEC #: [id number] RECD: 05/10/23 12:25 STATUS: AUDI GAVI #: [id number] KALLIE: 05/10/23 07:[address]: Paul Trevino DEPT: SURGICAL PATHOLOGY RECD BY: Lottie Arthur ENTERED: 05/10/23 12:26 SP TYPE: EGD BIOPSY JIMY DR: Dr. Albert Jeffries MD Tissues: Duodenum, NOS Procedures: Surgery Specimen Level IV HEADER OPERATION: EGD wit biopsy and electrohemostasis PRE-OP DIAGNOSIS: Irritable bowel syndrome with diarrhea TISSUE SUBMITTED: Duodenum ulcer biopsy MICROSCOPIC DIAGNOSIS Duodenal ulcer, biopsy: Fragments of duodenal mucosa with superficial erosion, fibrin exudation and reactive changes. GALLITO:becky 05/11/2023 MICROSCOPIC DESCRIPTION Slides are reviewed. GROSS DESCRIPTION Received in fixative is one container labeled with the patient's name and designated duodenum ulcer biopsy. The specimen consists of multiple irregular fragments of light isaacs soft tissue that in aggregate measure 0.6 x 0.5 x 0.1 cm. The specimen is totally submitted in one cassette. / GALLITO:becky 05/10/2023 TC:2 CPT: 27359
--- NOTE | 2023-05-10 07:13 | PCM.HP.BLA ---
History and Physical Date of Admission: 05/10/23 53 F who presents to the office today for [facility] General surgery workup. Questran failed. ? HIDA 03.12.20 EF 14% ? EGD 03.27.23 pathology gastritis ? Colonoscopy 10.02.20 non-bleeding internal hemorrhoids ? Surgery 01.21.21 laparoscopic cholecystectomy *BGI established 04.28.21. reflux has been a problem for several years; omeprazole 20mg mildly effective. Postprandial loose stools have been an issue with some dietary triggers noted. Start colestipol. ? Biochemical CBC (hgb 8.1), ESR, CMP, CRP, G(H1605)A(H458)ME, ANCA, MERNA comp, celiac without pertinent abnormality ? Retic abnormality, Iron L15, TIBC H493, ferritin L2, ? Stool ? EGD and colonoscopy 05.26.21 EGD three bleeding AVM of duodenum with red blood at pylorus. ? Colonoscopy without abnormality. OV 2.05.29 improvement of frequency since endoscopy but continues symptoms. Colestipol is helpful ? Capsule endoscopy 07.05.21 ulceration in stomach and small bowel. OV 07.22.21 start sucralfate, hold PPI. ? EGD 11.11.21 LA Grade A esophagitis; one non-bleeding cratered gastric ulcer, 6mm. OV 11.26.21 continued intermittent loose stools with crampy abdominal pain. Colestipol QHS; continue PPI and sucralfate. ? OV 02.18.22 continue to identify food triggers. ? Biochemical CBC, TIBC, ferritin without pertinent abnormality ? Iron L31 OV 11.28.23 feels she is doing better overall; but will have days of frequent/urgent loose stools with preceding abdominal cramping; other days she has a normal BM each day. Notes worsening around menstrual cycle (she is experiencing menopause at this time). Colestipol QHS and PPI continue. Reflux has been returning and occurs every 2-3 days and feels it is getting worse but feels this is also diet related. Diet is lacking in fiber. Admits to anxiety and stress. ROS Const Constitutional: No fatigue ENT ENT: No difficulty swallowing Gastro GI: Positive for bloating, change in bowel habits, heartburn and excessive flatus; No abdominal pain, belching, change in stool character, coffee ground emesis, constipation, cramping, diarrhea, difficulty swallowing, feeling full early, incontinent of stools, Vomiting blood/hematemesis, Blood in stool, loose stools, Black,tarry stools, nausea/dyspepsia, pain with swallowing, vomiting or other Musc Musculoskeletal: Positive for back pain and leg pain at night; No joint pain Skin Skin: No yellowing of the eye or itchy eyes Psych Psychiatric: No anxiety and No depression Endo Endocrine: No fatigue Aller/Imm Allergy/Immunologic: No itchy eyes Brandin/Lymp Hematologic/Lymphatic: Positive for easy bruising; No easy bleeding Exam Const General: cooperative, healthy appearing and comfortable Orientation: alert, awake and oriented x3 Quality Reporting Tobacco Screening ([facility] 138) Smoking Status: Never smoker Assessment and Plan Assessment and Plan (1) Irritable bowel syndrome with diarrhea: Status: Chronic Plan: doing much better, seems much less stressed, continue to pay attention to foods that trigger symptoms--fast food, dairy especially for her continue colestipol, she uses it prn rx for 20 mg dose of pantoprazole repeat EGD 11/2022 (2) Iron deficiency anemia: Status: Acute Plan: update labs today (3) Diarrhea: Status: Acute Plan: The differential diagnosis for diarrhea include bile acid diarrhea, IBS with diarrhea, celiac disease., Microscopic colitis, lymphocytic colitis, inflammatory bowel disease. We will get stool test and biochemical analysis. All symptoms diagnosis for continue diarrhea would be GI bleed has blood into cathartic in the GI tract. Her biochemical workup did not show any signs of inflammatory bowel disease, celiac disease or underlying pathology. (4) Anemia: Status: Acute Plan: I sent patient down for stat hemoglobin and her hemoglobin came back very low at 8 with MCV is 62.5. I will start her on iron therapy and recheck her CBC with iron studies in approximately 4 days. If her hemoglobin is continue to drop then she will need to get blood transfusion. I told her she will need to have an upper or lower endoscopy along with hemolysis labs to see if she is losing blood or she has having a consumptive coagulopathy.Her hemoglobin has improved. She was discovered to have acute gastric ulcers as the etiology of her anemia. She is no longer taking NSAIDs. Medications: New colestipol 1 g PO ONCE 30 tabs 2RF famotidine 40 mg PO QHS 30 tabs 2RF I have examined the patient and the H&P has been reviewed. There are no clinical changes since date of exam.
[2023-05-10 07:36] VITALS: BP 125/94; BP 136/98; PULSE 101; RESP 18; TEMP 36.2; O2SAT 97
[2023-05-10 07:40] VITALS: BP 132/97; BP 136/98; PULSE 101; RESP 18; O2SAT 99
[2023-05-10 07:45] VITALS: BP 125/95; BP 136/98; PULSE 96; RESP 12; O2SAT 99
--- NOTE | 2023-05-10 07:45 | OP.EGD_ITS ---
Patient Name: Soraya Reilly Procedure Date: 05/10/2023 7:10 AM Date of : 1970 Age: 53 Procedure: Upper GI endoscopy Indications: Iron deficiency anemia Providers: Paul Trevino DO Referring MD: Albert Jeffries MD Medicines: Monitored Anesthesia Care Patient Profile: This is a 53 year old female. Refer to note in patient chart for documentation of history and physical. Complications: No immediate complications. Procedure: Pre-Anesthesia Assessment: - Prior to the procedure, a History and Physical was performed, and patient medications and allergies were reviewed. The patient is competent. The risks and benefits of the procedure and the sedation options and risks were discussed with the patient. All questions were answered and informed consent was obtained. Patient identification and proposed procedure were verified by the physician. Mental Status Examination: normal. Prophylactic Antibiotics: The patient does not require prophylactic antibiotics. Prior Anticoagulants: The patient has taken no anticoagulant or antiplatelet agents. After reviewing the risks and benefits, the patient was deemed in satisfactory condition to undergo the procedure. The anesthesia plan was to use monitored anesthesia care (MAC). Immediately prior to administration of medications, the patient was re-assessed for adequacy to receive sedatives. The heart rate, respiratory rate, oxygen saturations, blood pressure, adequacy of pulmonary ventilation, and response to care were monitored throughout the procedure. The physical status of the patient was re-assessed after the procedure. After obtaining informed consent, the endoscope was passed under direct vision. Throughout the procedure, the patient's blood pressure, pulse, and oxygen saturations were monitored continuously. The Endoscope was introduced through the mouth, and advanced to the third part of duodenum. The upper GI endoscopy was accomplished without difficulty. The patient tolerated the procedure well. Scope In: 7:21:50 AM Scope Out: 7:32:09 AM Total Procedure Duration Time 0 hours 10 minutes 19 seconds Findings: The examined esophagus was normal. The entire examined stomach was normal. One non-bleeding linear duodenal ulcer with pigmented material was found in the second portion of the duodenum. The lesion was 3 mm in largest dimension. Area was successfully injected with 5 mL of a 0.1 mg/mL solution of epinephrine for drug delivery. Coagulation for hemostasis using heater probe was successful. Estimated blood loss was minimal. One non-bleeding linear duodenal ulcer with no stigmata of bleeding was found in the third portion of the duodenum. The lesion was 2 mm in largest dimension. Biopsies were taken with a cold forceps for histology. Verification of patient identification for the specimen was done. Estimated blood loss was minimal. Impression: - Normal esophagus. - Normal stomach. - Non-bleeding duodenal ulcer with pigmented material. Injected. Treated with a heater probe. - Non-bleeding duodenal ulcer with no stigmata of bleeding. Biopsied. Recommendation: - Discharge patient to home. - Resume previous diet. - Continue present medications. - Await pathology results. Procedure Code(s): --- Professional --- 12303, 59, Esophagogastroduodenoscopy, flexible, transoral; with control of bleeding, any method 06238, Esophagogastroduodenoscopy, flexible, transoral; with biopsy, single or multiple 41011, 59, Esophagogastroduodenoscopy, flexible, transoral; with directed submucosal injection(s), any substance CPT copyright 2021 [employer]. All rights reserved. The codes documented in this report are preliminary and upon garage manager review may be revised to meet current compliance requirements. Paul Trevino DO 05/10/2023 7:45:08 AM This report has been signed electronically. Number of Addenda: 0 Note Initiated On: 05/10/2023 7:10 AM
--- NOTE | 2023-05-10 07:45 | OP.CCLET_ITS ---
05/10/2023 Albert Jeffries MD Re : Upper GI endoscopy procedure for Soraya Reilly Dear Dr. Jeffries This procedure was performed on Wednesday, May 10, 2023. My impressions and recommendations are as follows: Impressions : - Normal esophagus. - Normal stomach. - Non-bleeding duodenal ulcer with pigmented material. Injected. Treated with a heater probe. - Non-bleeding duodenal ulcer with no stigmata of bleeding. Biopsied. Recommendations : - Discharge patient to home. - Resume previous diet. - Continue present medications. - Await pathology results. My findings are described in the full procedure note, which is enclosed. If I can be of further assistance, please feel free to contact me at . Sincerely, Paul Trevino, 05/10/2023 7:45:08 AM This report has been signed electronically.
[2023-05-10 07:46] VITALS: BP 123/91; BP 136/98; PULSE 96; RESP 18; TEMP 36.3; O2SAT 100
[2023-05-10 07:57] VITALS: BP 136/98
[2023-05-10 09:39] LABS: Platelet Count 245 K/mm3 (150-450); RET-HE 21.1 pg (30-35); Reticulocyte Count 1.33 % (0.5-1.5)
[2023-05-10 09:48] LABS: Prothrombin Time (Protime)PT. 12.7 SECONDS (11.7-14.9)
[2023-05-10 09:49] LABS: Partial Thromboplast Time 27.3 Seconds (24.1-36.2)
[2023-05-10 10:27] LABS: Ferritin 2 ng/mL (8-252); Iron 16 ug/dL (50-170); Iron Binding Capacity,Total 430 ug/dL (250-450); LDH 177 U/L (84-246); PERCENT IRON SATURATION 3.7 % (15.0-55.0)
== END 2023-05-10 08:15 | disposition home or self-care (01) ==
LOC: EN 06:00 → AC 06:02
PROVIDERS: Anesthesiology; PCP Family Medicine; Referring Provider Family Medicine; Visit Provider Internal Medicine Gastroenterology
PROC: 0DJ08ZZ Inspection of Upper Intestinal Tract, Via Natural or Artificial Opening Endoscopic (ICD-10-PCS; CPT 43235; principal; 2023-05-10 06:55)
DX: K26.9 Duodenal ulcer, unspecified as acute or chronic, without hemorrhage or perforation (principal); K58.0 Irritable bowel syndrome with diarrhea; D50.9 Iron deficiency anemia, unspecified; Z90.49 Acquired absence of other specified parts of digestive tract; Z79.899 Other long term (current) drug therapy; K25.9 Gastric ulcer, unspecified as acute or chronic, without hemorrhage or perforation; Z87.19 Personal history of other diseases of the digestive system
CPT/HCPCS: 43255; 43239; 36415; 81025; 82728; 83540; 83550; 83615; 85045; 85610; 85730; 88305; J7120; J2405

== ENCOUNTER 2023-10-06 07:38 | Day surgery (SDC) | payer BC, SELFPAY ==
--- NOTE | 2023-09-21 14:12 | HP.PCM_ITS ---
History and Physical Date of Admission: 10/06/23 HPI: The patient is a 53 year old female presenting for pre-operative visit. She is scheduled for Hysteroscopy D&C and Liletta IUD insertion, for menorrhagia and endoemtrial hyperplasia on 10/06/23. Procedure discussed along with risks, benefits and complications. Other alternatives discussed for management. Consent form signed? Yes. PAST MEDICAL HISTORY PAST MEDICAL HISTORY Diagnosis Date ? GERD with esophagitis 02/01/2018 ? H/O malignant melanoma of back ? Hypertension, essential 05/11/2022 ? IBS (irritable bowel syndrome) ? Loose stools 03/12/[address] Trevino ? LOS WITHIN PROCEDURE CODE ? Malignant melanoma of right lower leg (HCC) 02/28/2023 Seeing [facility]: Dr. Pedro Garay ? Nausea 03/12/2020 ? Ulcer of small intestine PAST SURGICAL HISTORYExpand by Default PAST SURGICAL HISTORY Procedure Laterality Date ? COLONOSCOPY FLX DX W/COLLJ SPEC WHEN PFRMD 10/02/2020 ? EGD W/O [facility] SPEC VARICIES INJ 05/2023 ? ESOPHAGOGASTRODUODENOSCOPY TRANSORAL DIAGNOSTIC 03/27/2020 EGD ? LAPS SURG CHOLECYSTECTOMY W/CHOLANGIOGRAPHY 01/21/2021 CURRENT MEDICATIONS Current Outpatient Medications Medication Sig Dispense Refill ? losartan (COZAAR) 25 mg tablet Take 1 tablet by mouth once daily. 90 tablet 0 ? famotidine (PEPCID) 40 mg tablet Take 0.5 tablets by mouth daily at bedtime. ? colestipol (COLESTID) 1 gram tablet Take 1 g by mouth once daily. ? medroxyPROGESTERone (PROVERA) 10 mg tablet Take 1 tablet by mouth two times a day as needed. 60 tablet 0 ? MULTIVITAMIN ORAL Take by mouth once daily. No current facility-administered medications for this visit. ALLERGIES: Patient has no known allergies. PERSONAL HISTORY: SOCIAL HISTORY Social History Tobacco Use ? Smoking status: Never ? Smokeless tobacco: Never Vaping Use ? Vaping Use: Never used Substance Use Topics ? Alcohol use: Yes Comment: seldom ? Drug use: No FAMILY HISTORY: FAMILY HISTORY FAMILY HISTORY Problem Relation Age of Onset ? Heart Mother valve replacement and valve repair ? GERD Father ? Cancer Maternal Grandmother ? Colon Cancer Paternal Grandmother ? Coronary Artery Disease Paternal Grandmother 83 ? Heart Attack Paternal Grandmother ? Stroke Paternal Grandfather REVIEW OF SYMPTOMS: GENERAL: denies fevers or chills ENDOCRINOLOGY: has not been on steroids Cardiology : denies palpitations or chest pain Respiratory: denies SOB or cough Hematology: denies history of prolonged bleeding or easy bruising or VTE Allergy: Denies history of personal or family history of allergy to anesthesia PHYSICAL EXAMINATION: VITALS: Blood pressure 132/80, weight 173 lb (78.5 kg), last menstrual period 09/18/2023. GENERAL: The patient is well nourished, well hydrated in no acute distress. , The patient is oriented to time, place, and person. NECK: Supple. No lynphadenopathy, normal thyroid, no thyromegaly. LUNGS: Clear to auscultation bilaterally. no wheezes, rhonchi or rales HEART: Regular rate and rhythm, Normal heart sounds, and No murmurs or gallops GENITALIA: Normal external genitalia, Urethral meatus normal, Bladder nontender, normal vagina and normal vaginal tone, normal cervix, normal uterus, size and consistency, normal adnexa without masses or tenderness, and perineum WNL IMPRESSION: menorrhagia, fe def. anemia from chronic blood loss, endometrial hyperplasia-h/o in 2021 PLAN: The risks/benefits/alternatives and personal involved for the planned hsyteroscopy D&C with IUD insertion were reviewed with the patient. Her questions were answered to her satisfaction and she desires to proceed. Consent was signed. I reviewed with her postop instructions and expectations. I have reviewed and updated past medical and surgical history, medications and allergies Assessment & Plan Assessment/Plan (1) Iron deficiency anemia: QUALIFIERS: Iron deficiency anemia type: chronic blood loss Qualified Code(s): D50.0 - Iron deficiency anemia secondary to blood loss (chronic) (2) Abnormal uterine bleeding (AUB): (3) Encounter for IUD insertion:
--- NOTE | 2023-10-06 | EMB_PTH ---
PATIENT: REINA BOSS LOC: [facility] [place] U#:[id number] AGE/SX: 53/F ROOM: RE10/06/[address]: Dr. Rosalie Horvath MD : 1970 BED: DIS: 10/06/2023 SPEC #: [id number] RECD: 10/06/23 13:29 STATUS: AUDI GATICA #: [id number] KALLIE: 10/06/23 00:[address]: Rosalie Horvath DEPT: SURGICAL PATHOLOGY RECD BY: Albaro Blanchard ENTERED: 10/06/23 13:29 SP TYPE: ENDOM BX/C OTHR DR: Dr. Albert Jeffries MD Tissues: Endometrium, NOS Procedures: Surgery Specimen Level IV HEADER OPERATION: Hysterectomy, D&C with polypectomy, Symphion PRE-OP DIAGNOSIS: Iron deficiency anemia, abnormal uterine bleeding, encounter for IUD insertion TISSUE SUBMITTED: Endometrial curettings and polyp MICROSCOPIC DIAGNOSIS Endometrial curettings and polypectomy: Mildly disordered proliferative endometrium. Fragments of myometrium. Fragments of benign ectocervical and endocervical mucosa. GALLITO/ 10/09/2023 MICROSCOPIC DESCRIPTION Slides are reviewed. GROSS DESCRIPTION Received in fixative is one container labeled with the patient's name and designated Endometrial curettings and polyp. The specimen consists of multiple irregular fragments of pink-isaacs soft tissue measuring in aggregate 5.0 x 3.0 x 0.2cm. The specimen is submitted in its entirety in two cassettes. ARIEL/ 10/06/2023 TC:5 CPT:93177
[2023-10-06 08:15] LABS: Hematocrit 33.1 % (37-47); Hemoglobin 9.8 g/dL (12.0-15.0); Mean Corp Hgb Conc 29.6 g/dL (32-36); Mean Corpuscular Hgb 21.8 pg (27.0-32.0); Mean Corpuscular Volume 73.6 fL (81-99); Platelet Count 277 K/mm3 (150-450); RBC Distribution Width CV 18.6 % (11.6-14.6); RBC Distribution Width SD 49.5 fl (35.1-43.9)
[2023-10-06 08:16] VITALS: BP 126/97; PULSE 86; RESP 16; TEMP 36.9; O2SAT 96; BMI 28.6
[2023-10-06] MEDS: Ketorolac 30 MG/ML Syringe IV (08:20)
[2023-10-06] MEDS: Lactated Ringers 1,000 ML 15 ML IV (08:20)
[2023-10-06 08:21] LABS: Internal QC Validated? YES +Cl - CLEAR BKGD; Pregnancy, Urine Negative Negative
[2023-10-06] MEDS: Acetaminophen 500 MG Tablet 1000 MG PO (08:22)
[2023-10-06] MEDS: Lidocaine 1% /Epi 1:100 (50ml) 50 ML VIAL (09:52)
[2023-10-06] MEDS: Levonorgestrel IUD (Liletta) 1 EACH INTRA-UTER (10:09)
--- NOTE | 2023-10-06 10:15 | OP.PCM_ITS ---
Problems Associated Problem List Diagnoses (1) Encounter for IUD insertion: (2) Abnormal uterine bleeding (AUB): (3) Endometrial polyp: Report of Operation Date of Procedure: 10/06/23 Pre-Operative Diagnosis: aub, IUD insertion Post-Operative Diagnosis: Same + endometrial polyp Surgery/Procedure Performed:: Hysteroscopy D&C with polypectomy and IUD insertion Description of Surgical Findings:: proliferative endometrium w/ polyp at right anterior fundus, normal cervix and vagina Surgeon: Rosalie Horvath supervisor coil springs: None Type of Anesthesia: MAC/Supplemental/Local Anesthesiologist: Phyllis Carmen Special Medications: none Specimen's removed: endometrial curettings and polyp Drains: none Estimated Blood Loss (mL): 10 Fluids Replaced: 800 Description of Procedure: The patient was taken to the OR where she was prepped and draped in dorsal lithotomy position. The weighted speculum was placed in the vagina and the a nterior lip of the cervix was grasped with a single-tooth tenaculum. A paracervical block was administered with with. The cervix was dilated serially with Hegar dilators. The 5mm hysteroscope was placed into the uterine cavity and the above findings were noted. Bilateral tubal ostia were identified. The hysteroscope was removed. A gentle sharp curettage was done of the uterine cavity. The hysteroscope was replaced and only part of the fundal polyp had been removed. Therefore the Symphion device was readied and inserted. The remainder of the polyp was removed in its entirety and a visual D&C was done of the remaining portion of the endometrium. The endometrium was thin and no other discrete abnormalities were noted. The instruments were removed from the vagina. The specimen was handed off and sent to pathology. All sponge and needle counts were correct. Vaginal sweep was performed by me. The patient was awakened and taken to the recovery room in stable condition. Hysteroscopic fluid deficit is 250 cc of normal saline Grafts/Implants Used: Liletta IUD Procedure Start Time: 09:52 Procedure Stop Time: 10:01 Complications none Admit VTE Documentation VTE Present on Admission: No VTE Mechan Device Prophylaxis: SCD's VTE Pharm Prophylaxis ordered?: No Reason prophylaxis not ordered:: Procedure Not Indicated
[2023-10-06 10:20] VITALS: BP 107/74; BP 126/97; PULSE 77; RESP 16; TEMP 36.6; O2SAT 100
--- NOTE | 2023-10-06 10:21 | PCM.DC ---
Discharge Instructions Diet Discharge Diet: No restrictions Activity Discharge Activity: May Shower and May Take a Tub Bath (in 1 week) Return to work on:: 10/09/23 May resume sexual activity in: 1-2 weeks and 2 weeks Lifting Restrictions: none Dressing / Incision Call your doctor if your incision/area has: Sudden Increased Bleeding and Foul Smelling Discharge Call your doctor if you observe: Fever of 101 or Higher and Using more than 1 pad per hour (for 2 hrs in a row) Follow Up Care Please Follow Up With: Rosalie Horvath MD When: 2-4 weeks or as needed. We will contact you with your pathology next week and schedule a follow up if needed. Call [phone] with any concerns or questions or send a [employer] message Test Results: Test results from this visit will be discussed in further detail at your follow-up appointment, if applicable. Discharge Plan Admission Attending Provider: Rosalie Horvath Primary Care Provider: Albert Jeffries Instructions Print Language: Italian Discharge Orders/Prescriptions Prescriptions: No Action losartan 25 mg tablet 25 mg PO DAILY Patient Comments: TAKE 1 TABLET BY MOUTH EVERY DAY medroxyprogesterone 10 mg tablet 10 mg PO BID colestipol 1 gram tablet 2 g PO QHS Rx Instructions: TAKE 2 TABLETS BY MOUTH TWICE A DAY famotidine 40 mg tablet 40 mg PO QHS Qty: 30 2RF Referrals / Follow Up: Albert Jeffries MD [Primary Care Provider] - Disposition Disposition (needs filled in before D/C Order can be placed): Home, Self Care
[2023-10-06 10:25] VITALS: BP 114/71; BP 126/97; PULSE 71; RESP 16; O2SAT 100
[2023-10-06 10:30] VITALS: BP 117/70; BP 126/97; PULSE 67; RESP 16; TEMP 36.3; O2SAT 99
[2023-10-06 11:17] VITALS: BP 126/76; BP 126/97; PULSE 67; RESP 14; TEMP 36.8; O2SAT 100
== END 2023-10-06 11:24 | disposition home or self-care (01) ==
LOC: SDC 07:44 → AC 07:44
PROVIDERS: PCP Family Medicine; Referring Provider Obstetrics & Gynecology; Visit Provider Obstetrics & Gynecology
PROC: 0UDB8ZZ Extraction of Endometrium, Via Natural or Artificial Opening Endoscopic (ICD-10-PCS; CPT 58558; principal; 2023-10-06 09:00)
DX: N85.00 Endometrial hyperplasia, unspecified (principal); I10 Essential (primary) hypertension; N92.0 Excessive and frequent menstruation with regular cycle; D50.0 Iron deficiency anemia secondary to blood loss (chronic); Z30.430 Encounter for insertion of intrauterine contraceptive device; K21.9 Gastro-esophageal reflux disease without esophagitis; N93.9 Abnormal uterine and vaginal bleeding, unspecified; Z79.899 Other long term (current) drug therapy
CPT/HCPCS: 58558; 58300; 00952; 81025; 85027; 88305; J7120; J2405

== ENCOUNTER → 2024-07-22 | Outpatient (CLI) | payer BC, SELFPAY ==
[2024-07-22 17:27] LABS: Absolute Lymphocyte Count 1.66 X10^3/uL (0.83-4.51); Absolute Neutrophil Count 3.1 X10^3/uL (2.0-7.7); Basophil# 0.04 X10^3/uL; Basophil% 0.7 % (0-1); Eosinophils% 3.4 % (0-5); Hematocrit 39.8 % (37-47); Hemoglobin 12.5 g/dL (12.0-15.0); Lymphocyte # 1.66 X10^3/ul (0.83-4.51); Lymphocyte % 28.4 % (19-41); Mean Corp Hgb Conc 31.4 g/dL (32-36); Mean Corpuscular Hgb 25.7 pg (27.0-32.0); Mean Corpuscular Volume 81.9 fL (81-99); Mean Platelet Vol. 9.8 fl (6.2-12.0); Monocyte# 0.83 X10^3/uL; Monocyte% 14.2 % (0-10); NRBC Flagged by Analyzer 0 % (0-5); Neutrophil % 53.1 % (47-70); Platelet Count 217 K/mm3 (150-450); RBC Distribution Width CV 15.5 % (11.6-14.6); RBC Distribution Width SD 46.6 fl (35.1-43.9); RET-HE 29.4 pg (30-35); Red Blood Count 4.86 M/mm3 (4.2-5.4); Reticulocyte Count 1.38 % (0.5-1.5); White Blood Count 5.8 K/mm3 (4.4-11.0)
[2024-07-22 18:05] LABS: Ferritin 10 ng/mL (22-378); Iron 66 ug/dL (50-170); LDH 185 U/L (84-246)
[2024-07-25 16:08] LABS: Albumin 3.6 g/dL (2.9-4.4); Alpha-1-Globulins 0.2 g/dL (0.0-0.4); Alpha-2-Globulins 0.7 g/dL (0.4-1.0); Gamma Globulin 1.7 g/dL (0.4-1.8); Immunoglobulin A 388 mg/dL (87-352); Immunoglobulin G 1619 mg/dL (586-1602); Immunoglobulin M 110 mg/dL (26-217); PROEL- TOTAL PROTEIN 7.3 g/dL (6.0-8.5)
== END | disposition home or self-care (01) ==
LOC: LAB 15:46
PROVIDERS: PCP Family Medicine; Referring Provider Internal Medicine Gastroenterology; Visit Provider Internal Medicine Gastroenterology
DX: D64.9 Anemia, unspecified (principal)
CPT/HCPCS: 36415; 82728; 82784; 83540; 83615; 84165; 85025; 85045; 86334

== ENCOUNTER → 2024-09-11 | Outpatient (CLI) | payer BC, SELFPAY ==
--- NOTE | 2024-09-11 09:05 | RAD_ITS ---
PROCEDURE: BONE SURVEY COMPLETE 09/11/2024 REASON FOR EXAM: Abnormal blood work. Elevated protein levels. Female, age 54 y/o .. TECHNIQUE: Multiple plain films were obtained of the axial and appendicular skeleton. . COMPARISON: No relevant prior. FINDINGS: No fractures are identified. No osteolytic or osteoblastic lesions. No areas of periosteal reaction. The visualized joints are maintained. Mild dextrocurvature of the thoracolumbar spine. Mild multilevel spondylosis of the cervical spine. Narrowing of the C4 through C7 interspaces. Phleboliths in the pelvis. An intrauterine device is demonstrated. Metallic clips in the right inguinal region. RAD/Bone Survey Comp(Axial&Append) IMPRESSION: No evidence of osteolytic or osteoblastic lesions. No fractures or other significant osseous abnormalities. Mild cervical spondylosis and degenerative disc disease. Intrauterine device. Reading Location: [facility]
== END | disposition home or self-care (01) ==
PROVIDERS: PCP Family Medicine; Referring Provider Internal Medicine Medical Oncology; Visit Provider Internal Medicine Medical Oncology
DX: D47.2 Monoclonal gammopathy (principal)
CPT/HCPCS: 77075

== ENCOUNTER → 2024-09-18 | Outpatient (CLI) | payer BC, SELFPAY ==
[2024-09-18 09:04] LABS: Absolute Lymphocyte Count 1.33 X10^3/uL (0.83-4.51); Absolute Neutrophil Count 2.5 X10^3/uL (2.0-7.7); Basophil# 0.04 X10^3/uL; Basophil% 0.9 % (0-1); Eosinophil# 0.23 X10^3/uL; Eosinophils% 4.9 % (0-5); Hematocrit 39.6 % (37-47); Hemoglobin 12.8 g/dL (12.0-15.0); Lymphocyte # 1.33 X10^3/ul (0.83-4.51); Lymphocyte % 28.5 % (19-41); Mean Corp Hgb Conc 32.3 g/dL (32-36); Mean Corpuscular Hgb 26.8 pg (27.0-32.0); Mean Platelet Vol. 9.1 fl (6.2-12.0); Monocyte# 0.59 X10^3/uL; Monocyte% 12.6 % (0-10); NRBC Flagged by Analyzer 0 % (0-5); Neutrophil # 2.46 X10^3/uL (2.7-7.7); Neutrophil % 52.7 % (47-70); Platelet Count 231 K/mm3 (150-450); RBC Distribution Width CV 14.4 % (11.6-14.6); RBC Distribution Width SD 43.9 fl (35.1-43.9); RET-HE 31.5 pg (30-35); Red Blood Count 4.77 M/mm3 (4.2-5.4); Reticulocyte Count 1.24 % (0.5-1.5); White Blood Count 4.7 K/mm3 (4.4-11.0)
[2024-09-18 09:05] LABS: Erythrocyte Sedimentation Rate 14 mm/hr (0-30)
[2024-09-18 10:22] LABS: EST Glomerular Filtration Rate 93 (>60); Iron Binding Capacity,Total 350 ug/dL (250-450)
[2024-09-18 10:23] LABS: ALB/GLOB Ratio 1.2 RATIO (0.9-2.4); AST(SGOT) 17 U/L (<=31); Alanine Aminotransfer ALT/SGPT 9 U/L (<=34); Albumin, Serum 3.8 g/dL (3.5-5.0); Alkaline Phosphatase 71 U/L (35-104); Anion Gap 9 (5-15); BUN 16 mg/dL (4-19); BUN/Creat Ratio 19.7 RATIO (10-20); Calcium,Total 8.9 mg/dL (7.6-11.0); Carbon Dioxide 22.5 mmol/L (21.0-32.0); Chloride 107 mmol/L (98-108); Creatinine, Serum 0.79 mg/dL (0.70-1.20); Ferritin 13 ng/mL (22-378); Globulin 3.3 g/dL (2.2-4.2); Glucose 88 mg/dL (70-99); Potassium 3.9 mmol/L (3.3-5.1); Protein, Total 7.2 g/dL (5.9-8.4); Sodium Level 138 mmol/L (133-145); Total Bilirubin 0.45 mg/dL (0.00-1.30); Vitamin B12 487 pg/mL (180-914)
[2024-09-18 10:27] LABS: CRP < 3.00 mg/L (0.0-3.0); Iron 45 ug/dL (50-170); Iron Binding Capacity,Unsat 305 ug/dL (228-428); LDH 165 U/L (84-246); Magnesium 2.3 mg/dL (1.5-2.2); PERCENT IRON SATURATION 12.9 % (13-59); Phosphorus 3.7 mg/dL (2.7-4.5)
[2024-09-21 08:08] LABS: Beta-2-Microglobulin, S 1.7 mg/L (0.6-2.4)
== END | disposition home or self-care (01) ==
LOC: LAB 08:30
PROVIDERS: PCP Family Medicine; Referring Provider Internal Medicine Medical Oncology; Visit Provider Internal Medicine Medical Oncology
DX: D47.2 Monoclonal gammopathy (principal)
CPT/HCPCS: 36415; 80053; 82232; 82607; 82728; 82784; 83540; 83550; 83615; 83735; 83883; 84100; 84165; 85025; 85045; 85652; 86140; 86334; 86704; 86705; 86706; 86707; 86803; 87340; 87350

== ENCOUNTER → 2025-03-27 | Outpatient (CLI) | payer BC, SELFPAY ==
--- NOTE | 2025-03-27 12:02 | US_ITS ---
PROCEDURE: EXT NON VASC LIMITED/SOFT TISS 03/27/2025 REASON FOR EXAM: HX MELANOMA RLE,LYPHADENOPATHY Lymph nodes in the right groin. TECHNIQUE: Procedure Code: [id number] Modality: US Procedure: EXT NON VASC LIMITED/SOFT TISS. Targeted imaging of the right groin was performed with ultrasound. COMPARISON: None FINDINGS: There is a 3.9 cm x 0.7 cm 1 cm enlarged lymph node in the right groin. There is evidence of a central fatty hilum with increased blood flow. There is also evidence of a 1.3 cm x 0.8 cm x 0.6 cm benign-appearing lymph node. US/Ext Non Vasc Limited/Soft Tiss IMPRESSION: Enlarged lymph node in the right groin measuring 3.9 cm x 0.7 cm [address] cm. A centr al fatty hilum with the normal hypoechoic cortex is seen. This most likely is a benign reactive lymph node. Clinical follow-up recommended. Reading Location: [place]
== END | disposition home or self-care (01) ==
LOC: US 11:57
PROVIDERS: PCP Family Medicine
DX: R59.0 Localized enlarged lymph nodes (principal); Z85.820 Personal history of malignant melanoma of skin
CPT/HCPCS: 76882

== ENCOUNTER → 2025-04-25 | Outpatient (CLI) | payer BC, SELFPAY ==
--- NOTE | 2025-04-25 10:59 | US_ITS ---
PROCEDURE: EXT NON VASC LIMITED/SOFT TISS 04/25/2025 REASON FOR EXAM: MELANOMA OF LEG TECHNIQUE: Procedure Code: [id number] Modality: US Procedure: EXT NON VASC LIMITED/SOFT TISS COMPARISON: Right groin ultrasound of 03/27/2025 FINDINGS: The patient presented for core biopsy of a right groin lymph node. Repeat imaging prior to the biopsy shows significant interval decrease in size of the previously concerning right inguinal lymph node, now measured at 2.9 x 1.6 x 1.0 cm. A prominent fatty hilum is seen. No evidence of area of cortical thickening or significant cortical asymmetry is seen. No abnormally increased blood flow is seen upon color Doppler evaluation. Because of these findings, a core biopsy was not performed. US/Ext Non Vasc Limited/Soft Tiss IMPRESSION: Significant interval decrease in size of the previously concerning right inguin al lymph node, with a benign appearance present. Reading Location: [place] [id number]
[2025-04-25 11:10] VITALS: BP 132/83; PULSE 74; RESP 18; O2SAT 96
== END | disposition home or self-care (01) ==
LOC: US 10:50
PROVIDERS: PCP Family Medicine
DX: C43.70 Malignant melanoma of unspecified lower limb, including hip (principal)
CPT/HCPCS: 76882